=== PATIENT | female | born 1990 | race Caucasian/White ===

== ENCOUNTER 2020-02-06 17:19 | Emergency (ER) | payer OTHER, SELFPAY ==
--- NOTE | 2020-02-06 17:31 | ECG_ITS ---
Test Reason : TACHY Blood Pressure : / mmHG Vent. Rate : 136 BPM Atrial Rate : 136 BPM P-R Int : 116 ms QRS Dur : 086 ms QT Int : 288 ms P-R-T Axes : 045 051 078 degrees QTc Int : 433 ms Sinus tachycardia Possible Left atrial enlargement Nonspecific ST abnormality rsr in v2 Abnormal ECG No previous ECGs available Referred By: Marguerite Wilder Electronically Signed By:KARLA SAMSON MD
--- NOTE | 2020-02-06 17:31 | XR_ITS ---
EXAMINATION: XR CHEST CLINICAL INFORMATION: Tachycardia COMPARISON: None TECHNIQUE: Frontal view of the chest was obtained. FINDINGS: Marked biconvex thoracolumbar scoliosis is present. The exam is otherwise normal. The heart and pulmonary vessels appear normal. No infiltrates, effusions or lung masses are seen. No pneumothorax. XR/XR chest 1V IMPRESSION: No acute intrathoracic disease.
[2020-02-06 17:32] VITALS: PULSE 134; RESP 16; TEMP 36.8; O2SAT 97; BMI 26.4
--- NOTE | 2020-02-06 17:41 | ED_ITS ---
HPI - Arrhythmia/Palpitations General Chief Complaint: Dizziness Stated Complaint: PALPITATIONS,HBP Time Seen by Provider: 02/06/20 17:31 Source: patient Mode of arrival: ambulatory Limitations: no limitations History of Present Illness HPI narrative: 29 yo female presents with sudden onset of dizziness with rapid h eartbeat and is 2 months . At the time of feeling dizzy she took her blood pressure was 111/73, she takes her blood pressure several times a day because she is on nifedipine. She was given nifedipine approximately 2 months ago for preeclampsia symptoms. Her dose was increased from 60-90mg 2 days ago. Prior to this , she has not had any complications with blood pressure or arrhythmia. She does not describe any chest pain or pressure, shortness of breath, abdominal pain, abdominal distention, fevers, chills abnormal bleeding, dysuria, hematuria, and edema. MD complaint: rapid heart beat, heart racing and irregular heart beat Onset (ago): hour(s) ( 1 hour prior to arrival) Duration: constant Severity: moderate Context: occurred during rest Associated symptoms: denies other symptoms Related Data Previous Rx's Medication Instructions Recorded labetalol 100 mg PO BID #14 tab 02/06/20 Allergies Allergy/AdvReac Type Severity Reaction Status Date / Time No Known Allergies Allergy Verified 02/06/20 17:40 [No Known Allergies*] Review of Systems Review of Systems: Constitutional: No Weight loss, No Fever, No Chills, No Night Sweats, No Fatigue, No Malaise ENT/Mouth: No Hearing loss, No Ear Pain, No Nasal Congestion, No Sinus Pain, No Hoarseness, No sore throat, No Rhinorrhea, No Swallowing Difficulty Eyes: No Eye Pain, No Swelling, No Redness, No Foreign Body, No Discharge, No Vision Changes Cardiovascular: positive palpitations, No Chest Pain, No SOB, No Dyspnea on Exertion, No Orthopnea, No Edema Respiratory: No Cough, No Sputum, No Wheezing, No Smoke Exposure, No Dyspnea Gastrointestinal: No Nausea, No Vomiting, No Diarrhea, No Constipation, No abdominal Pain, No Hematochezia, No Melena Genitourinary: no irregular bleeding, No Dysuria, No Urinary Frequency, No Hematuria, No Urinary Incontinence, No Urgency, No Flank Pain, No Urinary Flow Changes, No Hesitancy Musculoskeletal: No joint pain, No Myalgias, No Joint Swelling Skin: No Skin Lesions, No rash Neuro: Positive dizziness, No Weakness, No Numbness, No Paresthesias, No Loss of Consciousness, No Headache Psych: No Anxiety/Panic, No Depression, No SI/HI/AH/VH, No Social Issues Heme/Lymph: No Bruising, No Bleeding,No Lymphadenopathy Endocrine: No Polyuria, No Polydipsia, No Temperature Intolerance PMF Past Medical History Attestation statement: The following information was validated with the patient. Medical History HTN (hypertension) : 2 Para: 2 Total number of abortions (spontaneous and elective): 0 Hx Last Menstrual Period: 2 months Social History Social History Alcohol intake: never Smoking Status: Never smoker Use of substances other than those prescribed or required for medical reasons: No Advance Directives: No Advance Directives Information Provided: Yes Physical Exam Vital Signs: Vital Signs: Vital Signs Temp Pulse Resp BP Pulse Ox 02/06/20 20:00 97.7 F 109 H 20 122/79 98 02/06/20 18:51 113 H 20 125/76 98 02/06/20 17:32 98.3 F 134 H 16 97 Body Mass Index 26.4 Appearance: Alert. Oriented X3. No acute distress. Head: Normal external exam. Normocephalic. Atraumatic. No Carr signs noted. No raccoon eyes noted Eyes: PERRLA. EOMI. Conjunctiva and sclera normal. Eyelids normal. ENT: TM's Normal. Pharynx normal. Uvula midline. Moist mucous membranes. No trismus noted. No drooling noted. No muffled voice noted. Neck: Normal inspection. Neck supple. No adenopathy. Thyroid Normal. No meningeal signs. No neck mass noted. CVS: Normal heart rate and rhythm. Heart sound normal. No murmurs noted. Pulses equal to all extremities. Respiratory: No respiratory distress. Painless inspiration. Breath sounds normal. No wheezes/rales/rhonchi noted. Chest nontender. No accessory muscle usage noted or decreased air movement noted. Abdomen: Soft and nontender. Bowel sounds normal in all 4 quadrants. No distention noted. No organomegaly noted. No visible injury noted. Back: No CVA tenderness. Full range of motion noted. Skin: Skin warm and dry. Normal skin color. Normal skin turgor. No rashes/lesions/lacerations noted. Extremities: No lower extremity edema. Extremities exhibit normal range of motion. Extremities nontender. Neuro: cranial nerves 2-12 intact, no focal neural deficits, strength 5/5 to all extremities, No motor deficit. No sensory deficit. Reflexes normal. Course Course Course Narrative: 29-year-old female 2 months presents with palpitations. Plan of care to rule out ACS, PE, infection, dehydration And HELLP syndrome. Reevaluation(s) Reevaluation #1: Ice bucket Valsalva maneuver, heart rate in the 120s Time: 17:58 Reevaluation #2: patient's heart rate in the low 100s, states to feel better than arrival, blood pressure 117/75, no acute distress. Time: 19:06 Reevaluation #3: heart rate is 108, blood pressure is 123/77, patient is resting comfortably. Plan of care is to discharge home with patient to follow- up with OBGYN and or whomever prescribed her nifedipine. Medications we changed to labetalol which she will start tomorrow. Patient does verbalize understanding of and agrees to plan of care discharge home. 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 Time: 20:25 MDM - Arrhythmia/Palpitations Differential Diagnosis Differential diagnosis: Likely palpitations, sinus tachycardia and artial f ibrillation Medical Records Attestation: I reviewed the patient's medical records. Lab Data Attestation: I reviewed the patient's lab results. Result diagrams: 02/06/20 17:50 02/06/20 17:50 Labs: Lab Results 02/06/20 02/06/20 02/06/20 Range/Units 17:50 17:50 17:50 WBC 11.6 H (4.8-10.8) X10*3/uL RBC 4.34 (4.20-5.50) X10*6/uL Hgb 12.9 (12.0-16.0) g/dl Hct 39.3 (37-47) % MCV 90.6 (80-98) fL MCH 29.7 (27.0-33.0) pg MCHC 32.8 (31.0-35.0) g/dl RDW 13.6 (11.0-16.0) % Plt Count 271 (160-400) X10*3/uL MPV 9.4 (9.4-12.3) fL Immature Gran % (Auto) 0.3 (0.0-0.4) % Neut % (Auto) 56.4 (45-73) % Lymph % (Auto) 36.4 (20-40) % [place] % (Auto) 4.5 (2-11) % Eos % (Auto) 2.1 (0-4) % Baso % (Auto) 0.3 (0-2) % Lymph # (Auto) 4.2 (1.2-4.9) X10*3/uL [place] # (Auto) 0.5 (0.1-1.2) X10*3/uL Eos # (Auto) 0.3 (0.0-0.4) X10*3/uL Baso # (Auto) 0.0 (0.0-0.2) X10*3/uL Abs Immat Gran (auto) 0.03 (0.00-0.03) X10*3/uL Absolute Neuts (auto) 6.6 (2.0-8.3) X10*3/uL Absolute Nucleated RBC 0.000 (0.0-0.012) X10*3/uL Nucleated RBC % (auto) 0.0 (0.0-0.2) /100WBC D-Dimer NG/ML Sodium 138 (135-145) mmol/L Potassium 3.4 (3.3-5.1) mmol/l Chloride 102 (96-108) mmol/L Carbon Dioxide 22 (22-29) mmol/L Anion Gap 17 (12-20) BUN 15 (9-16) mg/dL Creatinine 0.77 (0.5-1.4) mg/dL Estim Creat Clear Calc 117.8 Estimated GFR > 60 Random Glucose 130 H (60-115) mg/dL Lactic Acid 1.9 (0.5-2.0) mmol/L Calcium 9.4 (8.4-10.2) mg/dL Magnesium 1.8 (1.6-2.6) mg/dL Total Bilirubin 0.4 (0.0-1.0) mg/dL Direct Bilirubin 0.2 (0.0-0.5) mg/dL AST 29 (5-31) U/L ALT 31 (0-31) U/L Alkaline Phosphatase 105 (39-117) U/L Troponin I High Sens (<3.5-17.0) ng/L B-Natriuretic Peptide (<100) pg/mL Total Protein 8.3 H (6.5-8.0) g/dL Albumin 4.9 (3.5-5.0) g/dL Lipase 35 (8-78) U/L TSH (0.32-4.0) mIU/mL Urine Color Urine Appearance Urine pH (5.0-8.0) Ur Specific [place] (1.005-1.025) Urine Protein (NEG-TRACE) MG/DL Urine Glucose (UA) (NEG) MG/DL Urine Ketones (NEG) MG/DL Urine Blood (NEG) Urine Nitrite (NEG) Ur Leukocyte Esterase (NEG) Urine RBC (0) /HPF Urine WBC (0-4) /HPF Ur Squamous Epith Cells /LPF Urine Bacteria /LPF Urine Mucus /LPF 02/06/20 02/06/20 02/06/20 Range/Units 17:50 17:50 17:51 WBC (4.8-10.8) X10*3/uL RBC (4.20-5.50) X10*6/uL Hgb (12.0-16.0) g/dl Hct (37-47) % MCV (80-98) fL MCH (27.0-33.0) pg MCHC (31.0-35.0) g/dl RDW (11.0-16.0) % Plt Count (160-400) X10*3/uL MPV (9.4-12.3) fL Immature Gran % (Auto) (0.0-0.4) % Neut % (Auto) (45-73) % Lymph % (Auto) (20-40) % [place] % (Auto) (2-11) % Eos % (Auto) (0-4) % Baso % (Auto) (0-2) % Lymph # (Auto) (1.2-4.9) X10*3/uL [place] # (Auto) (0.1-1.2) X10*3/uL Eos # (Auto) (0.0-0.4) X10*3/uL Baso # (Auto) (0.0-0.2) X10*3/uL Abs Immat Gran (auto) (0.00-0.03) X10*3/uL Absolute Neuts (auto) (2.0-8.3) X10*3/uL Absolute Nucleated RBC (0.0-0.012) X10*3/uL Nucleated RBC % (auto) (0.0-0.2) /100WBC D-Dimer < 200 NG/ML Sodium (135-145) mmol/L Potassium (3.3-5.1) mmol/l Chloride (96-108) mmol/L Carbon Dioxide (22-29) mmol/L Anion Gap (12-20) BUN (9-16) mg/dL Creatinine (0.5-1.4) mg/dL Estim Creat Clear Calc Estimated GFR Random Glucose (60-115) mg/dL Lactic Acid (0.5-2.0) mmol/L Calcium (8.4-10.2) mg/dL Magnesium (1.6-2.6) mg/dL Total Bilirubin (0.0-1.0) mg/dL Direct Bilirubin (0.0-0.5) mg/dL AST (5-31) U/L ALT (0-31) U/L Alkaline Phosphatase (39-117) U/L Troponin I High Sens < 3.5 (<3.5-17.0) ng/L B-Natriuretic Peptide 14 (<100) pg/mL Total Protein (6.5-8.0) g/dL Albumin (3.5-5.0) g/dL Lipase (8-78) U/L TSH 0.83 (0.32-4.0) mIU/mL Urine Color Urine Appearance Urine pH (5.0-8.0) Ur Specific [place] (1.005-1.025) Urine Protein (NEG-TRACE) MG/DL Urine Glucose (UA) (NEG) MG/DL Urine Ketones (NEG) MG/DL Urine Blood (NEG) Urine Nitrite (NEG) Ur Leukocyte Esterase (NEG) Urine RBC (0) /HPF Urine WBC (0-4) /HPF Ur Squamous Epith Cells /LPF Urine Bacteria /LPF Urine Mucus /LPF 02/06/20 Range/Units 19:35 WBC (4.8-10.8) X10*3/uL RBC (4.20-5.50) X10*6/uL Hgb (12.0-16.0) g/dl Hct (37-47) % MCV (80-98) fL MCH (27.0-33.0) pg MCHC (31.0-35.0) g/dl RDW (11.0-16.0) % Plt Count (160-400) X10*3/uL MPV (9.4-12.3) fL Immature Gran % (Auto) (0.0-0.4) % Neut % (Auto) (45-73) % Lymph % (Auto) (20-40) % [place] % (Auto) (2-11) % Eos % (Auto) (0-4) % Baso % (Auto) (0-2) % Lymph # (Auto) (1.2-4.9) X10*3/uL [place] # (Auto) (0.1-1.2) X10*3/uL Eos # (Auto) (0.0-0.4) X10*3/uL Baso # (Auto) (0.0-0.2) X10*3/uL Abs Immat Gran (auto) (0.00-0.03) X10*3/uL Absolute Neuts (auto) (2.0-8.3) X10*3/uL Absolute Nucleated RBC (0.0-0.012) X10*3/uL Nucleated RBC % (auto) (0.0-0.2) /100WBC D-Dimer NG/ML Sodium (135-145) mmol/L Potassium (3.3-5.1) mmol/l Chloride (96-108) mmol/L Carbon Dioxide (22-29) mmol/L Anion Gap (12-20) BUN (9-16) mg/dL Creatinine (0.5-1.4) mg/dL Estim Creat Clear Calc Estimated GFR Random Glucose (60-115) mg/dL Lactic Acid (0.5-2.0) mmol/L Calcium (8.4-10.2) mg/dL Magnesium (1.6-2.6) mg/dL Total Bilirubin (0.0-1.0) mg/dL Direct Bilirubin (0.0-0.5) mg/dL AST (5-31) U/L ALT (0-31) U/L Alkaline Phosphatase (39-117) U/L Troponin I High Sens (<3.5-17.0) ng/L B-Natriuretic Peptide (<100) pg/mL Total Protein (6.5-8.0) g/dL Albumin (3.5-5.0) g/dL Lipase (8-78) U/L TSH (0.32-4.0) mIU/mL Urine Color YELLOW Urine Appearance CLEAR Urine pH 6.0 (5.0-8.0) Ur Specific [place] 1.020 (1.005-1.025) Urine Protein NEG (NEG-TRACE) MG/DL Urine Glucose (UA) NEG (NEG) MG/DL Urine Ketones 5 (NEG) MG/DL Urine Blood NEG (NEG) Urine Nitrite NEG (NEG) Ur Leukocyte Esterase 1+ H (NEG) Urine RBC 0-2 (0) /HPF Urine WBC 5-9 H (0-4) /HPF Ur Squamous Epith Cells TRACE /LPF Urine Bacteria 1+ /LPF Urine Mucus TRACE /LPF ECG Data Attestation: I personally reviewed and interpreted this ECG as follows: ECG interpretation date: 02/06/20 ECG interpretation time: 17:59 Interpretation: Vent. rate 136 BPM MD interval 116 ms QRS duration 86 ms QT/QTc 288/433 ms P-R-T axes 45 51 78 Sinus tachycardia Possible Left atrial enlargement Nonspecific T wave abnormality Abnormal ECG No previous ECGs available Discharge Plan Discharge Clinical Impression: Tachycardia Patient Disposition: Home, Self-Care Instructions: Tachycardia (ED) Additional Instructions: you were evaluated for tachycardia. Please follow-up with your OBGYN and her PCP. Please stop taking nifedipine. We prescribed labetalol. Please start this medication tomorrow as directed. Symptoms persist, or you have any concerns please return to the emergency department immediately. Thank you for choosing this emergency department for evaluation. Please follow-up with primary care physician as needed. Return to the emergency department for any new, concerning, or worsening symptoms. Prescriptions: New labetalol 100 mg tablet 100 mg PO BID Qty: 14 RF: 0 Interventions: ED Discharge Assessment Last Done: 02/06/20 21:10 Discharge Date/Time: 02/06/20 21:10
[2020-02-06] MEDS: 0.9 % Sodium Chloride 1,000 ML 999 ML IVCONT ×2 (17:54→19:10)
[2020-02-06 17:57] LABS: MANUAL DIFF FLAG NO
[2020-02-06 17:58] LABS: Basophils Percent Auto 0.3 % (0-2); Eosinophils Absolute Auto 0.3 X10*3/uL (0.0-0.4); Eosinophils Percent Auto 2.1 % (0-4); Hematocrit 39.3 % (37-47); Hemoglobin 12.9 g/dl (12.0-16.0); Imm Gran Abs Auto 0.03 X10*3/uL (0.00-0.03); Imm Gran Pct Auto 0.3 % (0.0-0.4); Lymphocytes Absolute Auto 4.2 X10*3/uL (1.2-4.9); Lymphocytes Percent Auto 36.4 % (20-40); Mean Corpuscular HGB Conc 32.8 g/dl (31.0-35.0); Mean Corpuscular Hemoglobin 29.7 pg (27.0-33.0); Mean Corpuscular Volume 90.6 fL (80-98); Mean Platelet Volume 9.4 fL (9.4-12.3); Monocytes Absolute Auto 0.5 X10*3/uL (0.1-1.2); Monocytes Percent Auto 4.5 % (2-11); Neutrophils Absolute Auto 6.6 X10*3/uL (2.0-8.3); Neutrophils Percent Auto 56.4 % (45-73); Platelet Count 271 X10*3/uL (160-400); Red Blood Count 4.34 X10*6/uL (4.20-5.50); Red Cell Distribution Width 13.6 % (11.0-16.0); White Blood Count 11.6 X10*3/uL (4.8-10.8)
[2020-02-06 18:22] LABS: Lactic Acid 1.9 mmol/L (0.5-2.0)
[2020-02-06 18:27] LABS: Alanine Aminotransferase 31 U/L (0-31); Albumin Level 4.9 g/dL (3.5-5.0); Alkaline Phosphatase 105 U/L (39-117); Anion Gap 17 (12-20); Aspartate Amino Transferase 29 U/L (5-31); Bilirubin Direct 0.2 mg/dL (0.0-0.5); Bilirubin Total 0.4 mg/dL (0.0-1.0); Blood Urea Nitrogen 15 mg/dL (9-16); Calcium 9.4 mg/dL (8.4-10.2); Carbon Dioxide 22 mmol/L (22-29); Chloride 102 mmol/L (96-108); Creatinine Clr Calc Pharmacy 117.8; Estimated Glomerular Filt Rate > 60; Glucose Random 130 mg/dL (60-115); Lipase 35 U/L (8-78); Magnesium 1.8 mg/dL (1.6-2.6); Potassium 3.4 mmol/l (3.3-5.1); Sodium 138 mmol/L (135-145); Total Protein 8.3 g/dL (6.5-8.0)
[2020-02-06 18:30] LABS: B Type Natriuretic Peptide 14 pg/mL (<100); Troponin-I High Sensitivity < 3.5 ng/L (<3.5-17.0)
[2020-02-06 18:39] LABS: D Dimer < 200 NG/ML
[2020-02-06 18:46] LABS: Thyroid Stimulating Hormone 0.83 mIU/mL (0.32-4.0)
[2020-02-06 18:51] VITALS: BP 125/76; PULSE 113; RESP 20; O2SAT 98
[2020-02-06 20:00] VITALS: BP 122/79; PULSE 109; RESP 20; TEMP 36.5; O2SAT 98
[2020-02-06 20:16] LABS: Glucose Urine UA NEG (NEG); Leukocyte Esterase Urine 1+ (NEG); Nitrite Urine NEG (NEG); Urine Blood NEG (NEG); Urine Ketones 5 MG/DL (NEG); Urine Protein NEG (NEG-TRACE)
[2020-02-06 20:17] LABS: Appearance Urine CLEAR; Color Urine YELLOW
[2020-02-06 20:46] LABS: Bacteria Urine 1+ /LPF; RBC Urine 0-2 /HPF (0); Squamous Epithelial Cell Urine TRACE /LPF
[2020-02-06 20:47] LABS: Mucus Urine TRACE /LPF
== END 2020-02-06 21:10 | disposition home or self-care (01) ==
PROVIDERS: Nurse Practitioner Family; Emergency Provider Emergency Medicine
DX: R00.2 Palpitations (principal); R42 Dizziness and giddiness; Z79.899 Other long term (current) drug therapy
CPT/HCPCS: 36415; 71045; 80048; 80076; 81001; 81003; 83605; 83690; 83735; 83880; 84443; 84484; 85025; 85379; 87040; 93005; 96360; 96361; 99284

== ENCOUNTER 2020-02-29 19:32 | Emergency (ER) | payer OTHER, SELFPAY ==
--- NOTE | 2020-02-29 | ECG_ITS ---
Test Reason : TACHYCARDIA Blood Pressure : / mmHG Vent. Rate : 126 BPM Atrial Rate : 126 BPM P-R Int : 152 ms QRS Dur : 086 ms QT Int : 266 ms P-R-T Axes : 045 035 086 degrees QTc Int : 385 ms Sinus tachycardia Nonspecific T wave abnormality Abnormal ECG No significant changes seen Referred By: Joseph Lazcano Electronically Signed By:KARLA SAMSON MD
[2020-02-29 19:48] VITALS: BP 127/65; BP 128/71; PULSE 122; PULSE 135; RESP 16; TEMP 36.8; O2SAT 99; BMI 56.2
--- NOTE | 2020-02-29 19:59 | PC.NURSE ---
EKG and labs obtained.
--- NOTE | 2020-02-29 20:04 | ECG_ITS ---
Test Reason : SVT Blood Pressure : / mmHG Vent. Rate : 158 BPM Atrial Rate : 158 BPM P-R Int : 104 ms QRS Dur : 078 ms QT Int : 326 ms P-R-T Axes : 017 017 055 degrees QTc Int : 528 ms Sinus tachycardia with short CT Nonspecific ST and T wave abnormality Abnormal ECG When compared with ECG of 06-FEB-2020 17:37, Heart rate has increased ST depression in Anterolateral leads is new Referred By: Joseph Lazcano Electronically Signed By:KARLA SAMSON MD
[2020-02-29] MEDS: 0.9 % Sodium Chloride 1,000 ML 999 ML IVCONT (20:32)
--- NOTE | 2020-02-29 20:36 | PC.NURSE ---
pt speaking on the phone. labs to lab. NS up and running w/o site intact.
[2020-02-29 20:42] LABS: Basophils Percent Auto 0.1 % (0-2); Eosinophils Absolute Auto 0.2 X10*3/uL (0.0-0.4); Eosinophils Percent Auto 1.6 % (0-4); Hematocrit 35.8 % (37-47); Hemoglobin 11.7 g/dl (12.0-16.0); Imm Gran Abs Auto 0.01 X10*3/uL (0.00-0.03); Imm Gran Pct Auto 0.1 % (0.0-0.4); Lymphocytes Absolute Auto 3.6 X10*3/uL (1.2-4.9); Lymphocytes Percent Auto 36.5 % (20-40); MANUAL DIFF FLAG NO; Mean Corpuscular HGB Conc 32.7 g/dl (31.0-35.0); Mean Corpuscular Hemoglobin 30.8 pg (27.0-33.0); Mean Corpuscular Volume 94.2 fL (80-98); Mean Platelet Volume 9.9 fL (9.4-12.3); Monocytes Absolute Auto 0.5 X10*3/uL (0.1-1.2); Monocytes Percent Auto 5.2 % (2-11); Neutrophils Absolute Auto 5.5 X10*3/uL (2.0-8.3); Neutrophils Percent Auto 56.5 % (45-73); Platelet Count 257 X10*3/uL (160-400); Red Cell Distribution Width 14.2 % (11.0-16.0); White Blood Count 9.8 X10*3/uL (4.8-10.8)
--- NOTE | 2020-02-29 21:16 | ED.ARRPALP ---
HPI - Arrhythmia/Palpitations General Chief Complaint: Arrhythmia/Palpitations Stated Complaint: un Time Seen by Provider: 02/29/20 20:21 Source: patient Mode of arrival: ambulatory Limitations: language barrier History of Present Illness HPI narrative: patient 89 with history of preeclampsia was on nifedipine which was changed to labetalol on 02/05 for tachycardia for 1 week today patient had palpitation episode heart rate went to 165 and patient was feeling weak and dizzy. Patient denies any chest pain no shortness of breath no fever on arrival heart rate is in the 120s complaint: rapid heart beat Arrhythmia history: SVT Related Data Previous Rx's Medication Instructions Recorded labetalol 100 mg PO BID #14 tab 02/06/20 Allergies Allergy/AdvReac Type Severity Reaction Status Date / Time No Known Allergies Allergy Verified 02/06/20 17:40 [No Known Allergies*] Review of Systems Review of Systems: REVIEW OF SYSTEMS: Pertinent positives and negatives are stated above in the history. GEN: no fevers, chills, fatigue HEENT: no nasal congestion, sore throat, ear pain NEURO: no headache, dizziness, focal weakness PULM: no cough, shortness of breath CV: no chest pain, LE edema ABD: no abdominal pain, nausea, vomiting, diarrhea : no dysuria, urgency, frequency SKIN: no rash ROS otherwise negative x [facility] Past Medical History Medical History HTN (hypertension) Social History Social History Alcohol intake: never Smoking Status: Never smoker Advance Directives: No Advance Directives Information Provided: No Physical Exam Vital Signs: Vital Signs: Last Vital Signs Temp 98.2 F 02/29/20 19:48 Pulse 91 02/29/20 22:52 Resp 18 02/29/20 22:52 BP 128/85 02/29/20 22:52 Pulse Ox 98 02/29/20 22:52 Body Mass Index 56.2 Appearance: Alert. Oriented X3. No acute distress. Eyes: Pupils equal, round and reactive to light. ENT: Pharynx normal. Neck: Normal inspection. Neck supple. CVS: sinus tachycardia no murmur. Pulses normal. Respiratory: No respiratory distress. Breath sounds normal. Abdomen: Soft and nontender. Skin: Skin warm and dry. Normal skin color. Normal skin turgor. Extremities: No lower extremity edema. Good range of movement Neuro: Oriented X 3. No motor deficit. No sensory deficit. Course Course Course Narrative: 10:33pm lunchroom monitor showing SVT with heart rate 165 will give her 6 mg of Adenocard. Repeat EKG shows S sinus tachycardia with heart rate of 158 with poor response to Adenocard will give her Lopressor IV. Patient responded to Lopressor IV heart rate is 97 now sinus rhythm patient feels better will discharge her home to continue Lopressor 25 mg twice daily MDM - Arrhythmia/Palpitations MDM Narrative Medical decision making narrative: patient with sinus tachycardia was taking labetalol which was stopped blood pressure stable will start her on Lopressor 25 mg twice daily Differential Diagnosis Differential diagnosis: Likely palpitations, anxiety, sinus tachycardia and supraventricular tachycardia Medical Records Attestation: I reviewed the patient's medical records. Lab Data Attestation: I reviewed the patient's lab results. Result diagrams: 02/29/20 20:35 02/29/20 20:35 Labs: Lab Results 02/29/20 02/29/20 02/29/20 Range/Units 20:35 20:35 21:10 WBC 9.8 (4.8-10.8) X10*3/uL RBC 3.80 L (4.20-5.50) X10*6/uL Hgb 11.7 L (12.0-16.0) g/dl Hct 35.8 L (37-47) % MCV 94.2 (80-98) fL MCH 30.8 (27.0-33.0) pg MCHC 32.7 (31.0-35.0) g/dl RDW 14.2 (11.0-16.0) % Plt Count 257 (160-400) X10*3/uL MPV 9.9 (9.4-12.3) fL Immature Gran % (Auto) 0.1 (0.0-0.4) % Neut % (Auto) 56.5 (45-73) % Lymph % (Auto) 36.5 (20-40) % [place] % (Auto) 5.2 (2-11) % Eos % (Auto) 1.6 (0-4) % Baso % (Auto) 0.1 (0-2) % Lymph # (Auto) 3.6 (1.2-4.9) X10*3/uL [place] # (Auto) 0.5 (0.1-1.2) X10*3/uL Eos # (Auto) 0.2 (0.0-0.4) X10*3/uL Baso # (Auto) 0.0 (0.0-0.2) X10*3/uL Abs Immat Gran (auto) 0.01 (0.00-0.03) X10*3/uL Absolute Neuts (auto) 5.5 (2.0-8.3) X10*3/uL Absolute Nucleated RBC 0.000 (0.0-0.012) X10*3/uL Nucleated RBC % (auto) 0.0 (0.0-0.2) /100WBC Sodium 140 (135-145) mmol/L Potassium 3.1 L (3.3-5.1) mmol/l Chloride 105 (96-108) mmol/L Carbon Dioxide 23 (22-29) mmol/L Anion Gap 15 (12-20) BUN 14 (9-16) mg/dL Creatinine 0.70 (0.5-1.4) mg/dL Estim Creat Clear Calc 195.8 Estimated GFR > 60 Random Glucose 136 H (60-115) mg/dL Calcium 8.7 D (8.4-10.2) mg/dL TSH 1.03 (0.32-4.0) uIU/mL Urine Color STRAW Urine Appearance HAZY Urine pH 6.5 (5.0-8.0) Ur Specific [place] 1.010 (1.005-1.025) Urine Protein NEG (NEG-TRACE) MG/DL Urine Glucose (UA) NEG (NEG) MG/DL Urine Ketones NEG (NEG) MG/DL Urine Blood 3+ H (NEG) Urine Nitrite NEG (NEG) Ur Leukocyte Esterase 1+ H (NEG) Urine RBC 0-2 (0) /HPF Urine WBC 10-14 H (0-4) /HPF Ur Squamous Epith Cells 3+ /LPF Urine Bacteria 1+ /LPF Urine Mucus 1+ /LPF ECG Data Attestation: I personally reviewed and interpreted this ECG as follows: Prior ECG tracings: available for review Interpretation: sinus tachycardia with heart rate of 126. nonspecific ST T wave changes normal axis normal intervals impression sinus tachycardia. Discharge Plan Discharge Prescriptions: No Action labetalol 100 mg tablet 100 mg PO BID Qty: 14 RF: 0
[2020-02-29 21:25] LABS: Glucose Urine UA NEG (NEG); Leukocyte Esterase Urine 1+ (NEG); Nitrite Urine NEG (NEG); PH 6.5 (5.0-8.0); Urine Blood 3+ (NEG); Urine Ketones NEG (NEG); Urine Protein NEG (NEG-TRACE)
[2020-02-29 21:27] LABS: Anion Gap 15 (12-20); Blood Urea Nitrogen 14 mg/dL (9-16); Calcium 8.7 mg/dL (8.4-10.2); Carbon Dioxide 23 mmol/L (22-29); Chloride 105 mmol/L (96-108); Creatinine Clr Calc Pharmacy 195.8; Estimated Glomerular Filt Rate > 60; Glucose Random 136 mg/dL (60-115); Potassium 3.1 mmol/l (3.3-5.1); Sodium 140 mmol/L (135-145)
[2020-02-29 21:29] LABS: Appearance Urine HAZY; Color Urine STRAW
[2020-02-29 21:44] LABS: Bacteria Urine 1+ /LPF; RBC Urine 0-2 /HPF (0); Squamous Epithelial Cell Urine 3+ /LPF
[2020-02-29 21:45] LABS: Mucus Urine 1+ /LPF
[2020-02-29 21:52] LABS: Thyroid Stimulating Hormone 1.03 uIU/mL (0.32-4.0)
[2020-02-29 22:18] VITALS: BP 123/80; PULSE 103
[2020-02-29] MEDS: Potassium Chloride ER 20 MEQ TAB.ER.PRT PO (22:18)
[2020-02-29] MEDS: Metoprolol Tartrate 25 MG TABLET PO (22:18)
[2020-02-29] MEDS: Nitrofurantoin Monohyd/M-Cryst 100 MG CAPSULE PO (22:21)
[2020-02-29 22:44] VITALS: BP 140/85; PULSE 125
[2020-02-29] MEDS: Metoprolol Tartrate 5 MG/5 ML VIAL IVPUSH (22:44)
--- NOTE | 2020-02-29 22:50 | PC.NURSE ---
aprox 2230 pt found to be in svt 160s/ vagle maneuver ineffective. md to bedside. 6mg adenosine ivp brought hr to 130's for a short time but back to 160s quickly. pt was alert, coherent, skin pink warm, slightly diaphoretic. st at 95 after 5mg metoprolol ivp. md aware pt feels fine
[2020-02-29 22:52] VITALS: BP 128/85; PULSE 91; RESP 18; O2SAT 98
== END 2020-03-01 00:13 | disposition home or self-care (01) ==
PROVIDERS: Emergency Provider Internal Medicine
DX: R00.2 Palpitations (principal)
CPT/HCPCS: 36415; 80048; 81001; 84443; 85025; 87086; 93005; 96361; 96374; 96375; 99283; 99284; J0153

== ENCOUNTER 2025-03-03 14:18 | Outpatient (AMB) | payer OTHER, SELFPAY ==
--- NOTE | 2025-03-03 14:25 | A.OFFVIS_ITS ---
Vital Signs 03/03/25 14:33 Height 5 ft 8 in Weight 184 lb BMI 28.0 BP 156/88 H Blood Pressure Location Lt brachial Position Sitting Intake Visit Reasons: vaginal odor and pelvic pain Intake Note: vaginal odor and pelvic pain for about 3 days Registered Nurse Cardiac Required: Yes Registered Nurse Cardiac Services: Registered Nurse Cardiac Offered & Declined Information Interpreted: non-clinical & clinical Cupola Melter: Cupola Melter Present (Juanita) Accompanied by: Self / Same As Patient Allergies No Known Allergies (No Known Allergies*) Allergy (Verified 03/03/25 14:36) Medication List - Last Reconciled 03/03/25 by Mi Orellana CNM No Known Home Meds Is last menstrual period known: Yes (6 month ago) Do you need a note to return to daycare/school/sports/work: No HPI HPI vaginal odor and pelvic pain: Details: Patient is here as a brand new patient the visit says for vaginal odor and pelvic pain. 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 She wants it out to talk about getting some other method she is not really sure what other method she has 2 young children the youngest was 5. She had difficult pregnancies with severe preeclampsia.. She does not want to another she was hoping to take out this IUD and also then she wants to talk about another method. She does not want anymore children and she is very clear about that but she is afraid of surgery. She is sexually active she also voiced concern about having gained weight over time she used to be in the 150s and now she is in the 180s and she does not like that. She sees a primary care provider somewhere in [place] and she says the doctor took her off the blood pressure medicine she was on because her blood pressure was good it is elevated today. She thinks it is because she is nervous about an exam. [facility] Medical History (Updated 03/03/25 @ 15:26 by Mi Orellana CNM) HTN (hypertension) Social History Household Members: Spouse and Children Housing: Apartment Alcohol intake: never Current occupational status: employed Female Reproductive History Menstrual Age of Menarche: 14 control method: copper IUCD Total pregnancies: 2 Number of Living Children: 2 Physical Exam Vital Signs: Last Vital Signs BP 156/88 H 03/03/25 14:33 BMI result Body Mass Index 28.0 Other: Normal external speculum exam normal vaginal discharge and mucus normal mucosa cervix multiparous pink smooth healthy appearing with Mirena IUD visible normal non malodorous discharge cervix long close thick mobile nontender uterus midposition mobile nontender adnexa nontender nonenlarged fair tone with Kegel. External Female Exam: normal external appearance Speculum Exam - Vagina: normal appearance of the vagina and normal vaginal discharge Speculum Exam - Cervix: normal appearance of the cervix Bimanual exam- vagina & uterus: normal bimanual exam, uterine size normal, cons istency normal, uterine mobility normal, uterine shape normal and non-tender Bimanual Exam- Adnexa, other: normal adnexae, no masses and No adnexal tenderness Assessment & Plan Assessment & Plan (1) Encounter for screening examination for sexually transmitted disease: Code(s): Z11.3 - Encounter for screening for infections with a predominantly sexual mode of transmission Category: Medical (2) IUD (intrauterine device) in place: Comment: Patient thought she had a ParaGard IUD strings indicated is a Mirena IUD as does 3 years of amenorrhea. Patient considering change. Code(s): Z97.5 - Presence of (intrauterine) contraceptive device Category: Medical (3) HTN (hypertension): Comment: With history of severe preeclampsia in , states her doctor discontinued her meds... Code(s): I10 - Essential (primary) hypertension Category: Medical Plan Patient is here as a brand new patient the visit says for vaginal odor and pelvic pain. 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 She wants it out to talk about getting some other method she is not really sure what other method she has 2 young children the youngest was 5. She had difficult pregnancies with severe preeclampsia.. She does not want to another she was hoping to take out this IUD and also then she wants to talk about another method. She does not want anymore children and she is very clear about that but she is afraid of surgery. She is sexually active she also voiced concern about having gained weight over time she used to be in the 150s and now she is in the 180s and she does not like that. She sees a primary care provider somewhere in [place] and she says the doctor took her off the blood pressure medicine she was on because her blood pressure was good it is elevated today. She thinks it is because she is nervous about an exam. Discussed that she most likely has the Mirena IUD because that is what the strings appear to be and with her amenorrhea for 3 years it would not be the ParaGard I discussed other options of control that she might want to consider the future but a better plan is to know exactly what she is going to do before she takes out the IUD she has as it is clearly serving her cultures were done today for gonorrhea chlamydia trichomoniasis as well as well as bacterial vaginosis and yeast. Her discharge appears very healthy and normal today and there is no malodor evident. However we will await the test results to see if there is anything to treat. Teaching done about the difference between the ParaGard IUD and the Mirena IUD in terms of menstrual changes etc. discussed that she would not be a candidate for control pills because of her high blood pressure, also discussed that the other 2 non combination OC methods would not be beneficial for her because of her concern about weight gain (i.e. Nexplanon and Depo-Provera). We will see her for full annual exam with Pap smear and request that the records be sent before the visit. Medications: Discontinued metoprolol tartrate Discontinued Reason: Order 25 mg PO BID 60 tabs 0RF Coding Level of Care Code New Pt Level 3 (35934) Diagnoses Encounter for screening examination for sexually transmitted disease Z11.3 IUD (intrauterine device) in place Z97.5 HTN (hypertension) I10
[2025-03-03 14:33] VITALS: BP 156/88; BMI 28.0
--- OUTSIDE RECORDS SUMMARY | 2025-03-04 02:46 | XMS_ITS | Clinical Summary ---
Author Organization [employer] Address [address] [place] [address] Care Team Providers Care Officer Captain Name Role Phone Unavailable Primary Care Provider Unavailabl e Social History Tobacco Use Types Packs/Day Years Used Date Smoking Tobacco: Never Assessed Comments Unknown Sex and Gender Information Value Date Recorded Sex Assigned at Female 02/09/2022 3:45 PM EDT Legal Sex Female 3:45 PM EDT Gender Identity Not on file Sexual Orientation Not on file Plan of Treatment Health Maintenance Due Date Last Done Comments Depression Screening 1989 Disability Screening 1989 Alcohol/Substance Use Screening 2001 Tobacco Screening 2001 Family Planning (PISQ) 2004 HPV Vaccines (1 - 3-dose series) 2004 DTaP/Tdap/Td Vaccines (1 - Tdap) 2008 Hepatitis B Vaccines (1 of 3 - 19+ 3-dose series) 2008 Pap Smear 2010 Cervical Cancer Screening 2019 HPV/Cotest 2019 COVID-19 Vaccine ( - 2024-2 6 season) 2024 Influenza Vaccine (#1) 2024 Zoster Vaccines (1 of 2) 2039 RSV Patients and Pa tients Aged 60 years or older (1 - 1-dose 75+ series) 2064 HIB Vaccines Aged Out No longer eligi ble based on patient's age to complete this topic Hepatitis A Vaccines Aged Out No long er eligible based on patient's age to complete this topic IPV Vaccines Aged Out No longer eligi ble based on patient's age to complete this topic Meningococcal B Vaccine Aged Out No l onger eligible based on patient's age to complete this topic Meningococcal Vaccine Aged Out No mart vangie eligible based on patient's age to complete this topic Pneumococcal Vaccine: Pediat rics (0 to 5 Years) and At-Risk Patients (6 to 49) Years Aged Out No longer eligible b ased on patient's age to complete this topic RSV under 20 months Aged Out No longe r eligible based on patient's age to complete this topic Rotavirus Vaccines Aged Out No longer eligible based on patient's age to complete this topic
--- OUTSIDE RECORDS SUMMARY | 2025-03-04 02:46 | XMS_ITS ---
Author Name [facility] Organization Unknown Care Team Organization Name Specialty Phone Email Start Date End Da te [facility] FUAD AJ Primary Care 02/20/2022 4
== END 2025-03-03 15:43 | disposition home or self-care (01) ==
LOC: HO.HWSM 14:18
PROVIDERS: Visit Provider Advanced Practice Midwife
DX: Z11.3 Encounter for screening for infections with a predominantly sexual mode of transmission (principal); Z97.5 Presence of (intrauterine) contraceptive device; I10 Essential (primary) hypertension
CPT/HCPCS: 99203

== ENCOUNTER 2025-03-03 14:18 | Outpatient (REF) | payer OTHER, SELFPAY ==
[2025-03-04 12:10] LABS: Bacterial Vaginosis PCR POSITIVE (Negative); Candida Group PCR NOT DETECTED (Not Detect); Candida glab krusei PCR NOT DETECTED (Not Detect); Trichomonas vaginalis PCR NOT DETECTED (Not Detect)
[2025-03-04 12:40] LABS: CT PCR NOT DETECTED (Not Detect.); NG PCR NOT DETECTED (Not Detect.)
== END 2025-03-03 14:19 | disposition home or self-care (01) ==
LOC: HO.LAB 14:18
PROVIDERS: Visit Provider Advanced Practice Midwife
DX: Z20.2 Contact with and (suspected) exposure to infections with a predominantly sexual mode of transmission (principal); I10 Essential (primary) hypertension; Z97.5 Presence of (intrauterine) contraceptive device
CPT/HCPCS: 81515; 87491; 87591; 99202

== ENCOUNTER 2025-03-03 16:57 | Outpatient (REF) | payer OTHER, SELFPAY ==
--- OUTSIDE RECORDS SUMMARY | 2025-03-04 05:00 | XMS_ITS | Encounter Summary ---
Author Organization [facility] Address [address] [place] [address] Care Team Providers Care Voice Coach Name Role Phone Jelani Alicea MD Primary Care Provider + [phone] Luis Alfredo Foley MD Primary Care Provider [phone] Laney Epps MD Unavailable [phone] Encounter Details Date Type Department Care Team Description 05/17/2020 Refill Adult Medicine [facility] [address] [place] [address] Jelani Alicea MD [address] [place] [address] Social History Tobacco Use Types Packs/Day Years Used Date Smoking Tobacco: Never Smokeless Tobacco: Never Alcohol Use Standard Drinks/Week Comments No 0 (1 standard drink = 0.6 oz pur e alcohol) Sex Assigned at Date Recorded Not on file Job Start Date Occupation Industry Not on file Not on file Not on file COVID-19 Exposure Response Date Recorded In the last month, have you been in contact with someone who was confirmed or suspected to have Coronavirus / COVID-19? No / Unsure 04/25/2020 2:20 PM EST documented as of this encounter Miscellaneous Notes * Telephone Encounter - Yonatan Buckner - 05/17/2020 2:09 PM EST Pt notified. Pt also has appt f/u 05/25/2020 10:00 AM Wero Montes PA-C Adult [facility] * Telephone Encounter - Betzaida Alas M.A. - 05/17/2020 12:10 PM EST MARQUITA 1.8.21 Lab Results Component Value Date NA 138 04/22/2020 K 3.5 04/22/2020 CO2 27 04/22/2020 CL 102 04/22/2020 BUN 14 04/22/2020 CREAT 0.66 04/22/2020 GLU 86 04/22/2020 CA 10.0 04/22/2020 GFR > 60 04/22/2020 documented in this encounter Plan of Treatment Not on file documented as of this encounter Visit Diagnoses Not on filedocumented in this encounter Care Teams Voice Coach Relationship Specialty Start Date End Date Jelani Alicea MD [address] [place] [address] PCP - General Internal Medicine 08/09/17 06/28/21 Luis Alfredo Folye MD [address] [place] [address] PCP - General Internal Medicine 06/29/21 Laney Epps MD [address] [place] [address] Specialist Neurosurgery 10/26/22 documented as of this encounter
--- OUTSIDE RECORDS SUMMARY | 2025-03-04 05:00 | XMS_ITS | Encounter Summary ---
Author Organization [facility] Address [address] [place] [address] Care Team Providers Care Sensory Scientist Name Role Phone Jelani Alicea MD Primary Care Provider + [phone] Luis Alfredo Foley MD Primary Care Provider [phone] Laney Epps MD Unavailable [phone] Reason for Visit * Reason Comments E-prescribe Rx Request Encounter Details Date Type Department Care Team Description 03/05/2019 Refill OBGYN - [place] [address] [place], [place] [phone] Nargis Manzano, E-prescribe Rx Request Social History Tobacco Use Types Packs/Day Years Used Date Smoking Tobacco: Never Smokeless Tobacco: Never Alcohol Use Standard Drinks/Week Comments No 0 (1 standard drink = 0.6 oz pur e alcohol) Sex Assigned at Date Recorded Not on file Job Start Date Occupation Industry Not on file Not on file Not on file documented as of this encounter Miscellaneous Notes * Telephone Encounter - Ely Shira - 03/05/2019 4:04 PM EST WHEN WAS THE PATIENTS LAST ANNUAL STATISTICAL ENGINEER EXAM? 07/30/2016 Does patient have an upcoming appointment? Yes 04/01/2019 (THE MEDICATION REQUESTED IS ON THE MED LIST ABOVE) Did you check the Pharmacy information above?: YES Indicate how soon the patient needs the script: BY THE END OF THE DAY Patient would like script to be: E-PRESCRIBED/FAXED TO PHARMACY Is the doctor here today?: NO Can the message wait until the doctor returns?: NO Has the patient been told that the prescription will not be filled until the end of the day? NO Payor: [employer] FFS / Plan: [employer]ANCE / Product Type: MEDICAID RISK documented in this encounter Plan of Treatment Not on file documented as of this encounter Visit Diagnoses Diagnosis Encounter for initial prescription of contraceptive pills General counseling for prescription of oral contraceptives documented in this encounter Care Teams Sensory Scientist Relationship Specialty Start Date End Date Jelani Alicea MD [address] [place] [address] PCP - General Internal Medicine 08/09/17 06/28/21 Luis Alfredo Foley MD [address] [place] [address] PCP - General Internal Medicine 06/29/21 Laney Epps MD [address] [place] [address] Specialist Neurosurgery 10/26/22 documented as of this encounter
--- OUTSIDE RECORDS SUMMARY | 2025-03-04 05:00 | XMS_ITS | Encounter Summary ---
Author Organization [facility] Address [address] [place] [address] Care Team Providers Care Salesperson [employer] Name Role Phone Geno Levine DO Primary Care Pro vider Unavailable Jelani Alicea MD Primary Care Provider + [phone] Luis Alfredo Foley MD Primary Care Provider [phone] Laney Epps MD Unavailable [phone] Encounter Details Date Type Department Care Team Description 08/13/2016 Release of Information Medical Records [address] [place] [id number] Abstract, Provider Social History Tobacco Use Types Packs/Day Years Used Date Smoking Tobacco: Never Alcohol Use Standard Drinks/Week Comments No 0 (1 standard drink = 0.6 oz pur e alcohol) Sex Assigned at Date Recorded Not on file Job Start Date Occupation Industry Not on file Not on file Not on file documented as of this encounter Plan of Treatment Not on file documented as of this encounter Visit Diagnoses Not on filedocumented in this encounter Care Teams Salesperson [employer] Relationship Specialty Start Date End Date Geno Levine DO PCP - General Internal Medicine 03/07/16 08/08/17 Jelani Alicea MD [address] [place] [phone] PCP - General Internal Medicine 08/09/17 06/28/21 Luis Alfredo Foley MD [address] [place] [address] PCP - General Internal Medicine 06/29/21 Laney Epps MD [address] [place] [address] Specialist Neurosurgery 10/26/22 documented as of this encounter
--- OUTSIDE RECORDS SUMMARY | 2025-03-04 05:00 | XMS_ITS | Encounter Summary ---
Author Organization [facility] Address [address] [place] [address] Care Team Providers Care Leak Patcher Name Role Phone Luis Alfredo Foley MD Primary Care Provider [phone] Laney Epps MD Unavailable [phone] Encounter Details Date Type Department Care Team Description 10/02/2022 [facility] Medical [facility] Neurosurgery [place] [address] [phone] Laney Epps MD [address] [place] [address] Social History Tobacco Use Types Packs/Day Years [...] on filedocumented in this encounter Care Teams Leak Patcher Relationship Specialty Start Date End Date Luis Alfredo Foley MD [address] [place] [address] PCP - General Internal Medicine 06/29/21 Laney Epps MD [address] [address] Specialist Neurosurgery 10/26/22 documented as of this encounter
--- OUTSIDE RECORDS SUMMARY | 2025-03-04 05:00 | XMS_ITS | Encounter Summary ---
Author Organization [facility] Address [address] [place] [address] Care Team Providers Care Software Controls Engineer Name Role Phone Community, Pcp Primary Care Provider Unavailalida e Geno Levine DO Primary Care Pro vider Unavailable Jelani Alicea MD Primary Care Provider + [phone] Luis Alfredo Foley MD Primary Care Provider [phone] Laney Epps MD Unavailable [phone] Reason for Visit * Reason Onset Date Comments Prior Authorization 02/13/2016 Encounter Details Date Type Department Care Team Description 02/13/2016 Telephone OBGYN - [place] [address] [place], [place] [phone] Mckay Flores MD [address] [place], [place] [phone] Prior Authorization Social History Tobacco Use Types Packs/Day Years Used Date Smoking Tobacco: Never Alcohol Use Standard Drinks/Week Comments No 0 (1 standard drink = 0.6 oz pur e alcohol) Sex Assigned at Date Recorded Not on file Job Start Date Occupation Industry Not on file Not on file Not on file documented as of this encounter Miscellaneous Notes * Telephone Encounter - Rosalia Jin M.A. - 02/20/2016 9:45 AM EST Left message for patient. CMB Patient's insurance is Buy and Bill only for the nexplanon. Patient can make appt for BC consult tospeak about other options. * Telephone Encounter - Nubia Lockwood M.A. - 02/13/2016 4:44 PM EDT PRior auth for Nexplonan faxed, from placed in [place] documented in this encounter Plan of Treatment Not on file documented as of this encounter Visit Diagnoses Not on filedocumented in this encounter Care Teams Software Controls Engineer Relationship Specialty Start Date End Date Community, Pcp PCP - General Internal Medicine 02/13/16 03/06/16 Geno Levine DO PCP - General Internal Medicine 03/07/16 08/08/17 Jelani Alicea MD [address] [place] [address] PCP - General Internal Medicine 08/09/17 06/28/21 Luis Alfredo Foley MD [address] [place] [address] PCP - General Internal Medicine 06/29/21 Laney Epps MD [address] [place] [address] [place] [address] Specialist Neurosurgery 10/26/22 documented as of this encounter
--- OUTSIDE RECORDS SUMMARY | 2025-03-04 05:00 | XMS_ITS | Encounter Summary ---
Author Organization [facility] Address [address] [place] [address] Care Team Providers Care Sheep Rancher Name Role Phone Jelani Alicea MD Primary Care Provider + [phone] Luis Alfredo Foley MD Primary Care Provider [phone] Laney Epps MD Unavailable [phone] Encounter Details Date Type Department Care Team Description 06/11/2019 Transfer Records Medical Records [address] [place] [address] Abstract, Provider Social History Tobacco Use Types [...] on filedocumented in this encounter Care Teams Sheep Rancher Relationship Specialty Start Date End Date Jelani Alicea MD [address] [place] [address] PCP - General Internal Medicine 08/09/17 06/28/21 Luis Alfredo Foley MD [address] [place] [address] PCP - General Internal Medicine 06/29/21 Laney Epps MD [address] [place] [address] Specialist Neurosurgery 10/26/22 documented as of this encounter
--- OUTSIDE RECORDS SUMMARY | 2025-03-04 05:00 | XMS_ITS | Encounter Summary ---
Author Organization [facility] Address [address] [place] [address] Care Team Providers Care Shift Stacker Name Role Phone Jelani Alicea MD Primary Care Provider + [phone] Luis Alfredo Foley MD Primary Care Provider [phone] Laney Epps MD Unavailable [phone] Reason for Visit * Reason Comments E-prescribe Rx Request Encounter Details Date Type Department Care Team Description 10/08/2018 Refill OBGYN - [place] [address] [place], [place] [phone] Mckay Flores MD [address] [place], [place] [phone] E-prescribe Rx Request Social History Tobacco Use [...] encounter Miscellaneous Notes * Telephone Encounter - Dayana Tam - 10/08/2018 11:01 AM EDT Please review patient schedule for AG on 12/02/2018 with DLG * Telephone Encounter - Stephanie Dodson - 10/08/2018 9:54 AM EDT WHEN WAS THE PATIENTS LAST ANNUAL PROSTHETIC DENTIST EXAM? 07/30/16 Does patient have an upcoming appointment? Yes 12/02/18 (THE MEDICATION REQUESTED IS ON THE MED LIST ABOVE) Did you check the Pharmacy information above?: YES Indicate how soon the patient needs the script: BY THE END OF THE DAY Patient would like script to be: E-PRESCRIBED/FAXED TO PHARMACY Is the doctor here today?: YES Can the message wait until the doctor returns?: NO Has the patient been told that the prescription will not be filled until the end of the day? NO No billing information found for this encounter. documented in this encounter Plan of Treatment Not on file documented as of this encounter Visit Diagnoses Diagnosis Encounter for initial prescription of contraceptive pills General counseling for prescription of oral contraceptives documented in this encounter Care Teams Shift Stacker Relationship Specialty Start Date End Date Jelani Alicea MD [address] [place] [address] PCP - General Internal Medicine 08/09/17 06/28/21 Luis Alfredo Foley MD [address] [place] [address] PCP - General Internal Medicine 06/29/21 Laney Epps MD [address] [address] Specialist Neurosurgery 10/26/22 documented as of this encounter
--- OUTSIDE RECORDS SUMMARY | 2025-03-04 05:00 | XMS_ITS | Encounter Summary ---
Author Organization [facility] Address [address] [place] [address] Care Team Providers Care Data Entry Coordinator Name Role Phone Jelani Alicea MD Primary Care Provider + [phone] Luis Alfredo Foley MD Primary Care Provider [phone] Laney Epps MD Unavailable [phone] Encounter Details Date Type Department Care Team Description 12/29/2018 Business Doc Medical Records [address] [place] [address] Abstract, Provider Social History Tobacco Use Types [...] on filedocumented in this encounter Care Teams Data Entry Coordinator Relationship Specialty Start Date End Date Jelani Alicea MD [address] [place] [address] PCP - General Internal Medicine 08/09/17 06/28/21 Luis Alfredo Foley MD [address] [place] [address] PCP - General Internal Medicine 06/29/21 Laney Epps MD [address] [place] [address] Specialist Neurosurgery 10/26/22 documented as of this encounter
== END 2025-03-03 16:58 | disposition home or self-care (01) ==
LOC: HO.LNP 16:57
PROVIDERS: Visit Provider Advanced Practice Midwife
DX: Z13.89 Encounter for screening for other disorder (principal)

== ENCOUNTER 2025-03-26 11:09 | Outpatient (AMB) | payer OTHER, SELFPAY ==
--- NOTE | 2025-03-26 11:18 | MHC.OFFVIS ---
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 Records were requested and they are now in the chart and I have quickly reviewed 95 pages but do not see recent evaluations. 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 Testing for STIs was done at the last visit. Patient is not scheduled for IUD removal but she expressed hope for the same again today. However she also told me that her is in [place] getting treatment for an infection because he had been working out and he is going to be getting a vasectomy in about 2 days while he is there because that is where his insurance is based because of work. So she was hoping to have the IUD removed. She is very clear she does not want to have more children I did caution her that she he also we will need to go for follow-up to make sure that the sperm count is 0 or sufficiently low after the surgery before she considers removal of the IUD because risk of continues for some time afterwards. She very much isn't favor of waiting until that is complete, [facility] Medical History HTN (hypertension) Social History Household Members: Spouse and Children Housing: Apartment Alcohol intake: never Patient : No Current occupational status: employed Female Reproductive History Menstrual Age of Menarche: 14 control method: copper IUCD Total pregnancies: 2 Full term: 2 History of abnormal pap smear: No Physical Exam Vital Signs: Last Vital Signs BP 140/98 H 03/26/25 11:33 BMI result Body Mass Index 28.0 Const General: healthy appearing, comfortable, no acute distress, well developed and alert Nutritional Appearance: average body habitus Orientation/consciousness: patient oriented x3 Limitations: no limitations HEENT Head: Yes normocephalic Neck Neck: Yes normal visual inspection Chest Chest palpation & inspection: normal inspection of the chest Breast/axilla inspection: normal inspection of the breasts and normal inspection of the axillae Breast/axilla palpation: normal palpation of the breasts and normal palpation of the axillae Resp Effort & Inspection: normal respiratory effort GI Inspection: Yes normal to inspection, No Abdominal wall edema and No distended Palpation (GI): Soft to palpation and nontender Other: External exam within normal limits vagina pink and moist with normal-appearing whitish discharge . Cervix is multiparous pink smooth mobile nontender with Mirena strings easily visible. Uterus small midposition mobile nontender adnexa nontender nonenlarged. Patient does have good tone with Kegel.. General: Yes bladder normal to palpation External Female Exam: normal external appearance and normal appearance of the urethra Speculum Exam - Vagina: normal appearance of the vagina, normal palpation and normal vaginal discharge Speculum Exam - Cervix: normal appearance of the cervix, normal palpation and nontender Bimanual exam- vagina & uterus: normal bimanual exam, normal palpation, uterine size normal, bladder normal to palpation, consistency normal, normal palpation, uterine mobility normal, uterine shape normal, No Cervical tenderness present, non-tender and no cervical motion tenderness Bimanual Exam- Adnexa, other: normal adnexae, no masses, normal and No adnexal tenderness Neuro General: patient oriented x3 Assessment & Plan Assessment & Plan (1) IUD (intrauterine device) in place: Comment: Patient thought she had a ParaGard IUD strings indicated is a Mirena IUD as does 3 years of amenorrhea. Patient considering change. Code(s): Z97.5 - Presence of (intrauterine) contraceptive device Category: Medical (2) HTN (hypertension): Comment: With history of severe preeclampsia in , states her doctor discontinued her meds... Code(s): I10 - Essential (primary) hypertension Category: Medical (3) Screening for malignant neoplasm of cervix: Code(s): Z12.4 - Encounter for screening for malignant neoplasm of cervix Category: Medical (4) control counseling: Comment: Patient currently has Mirena wanted it removed is going to be having a vasectomy in a couple of days. I recommend delaying removal until he confirms that is sperm count is 0. Code(s): Z30.09 - Encounter for other general counseling and advice on contraception Category: Medical (5) Well woman exam with routine gynecological exam: Code(s): Z01.419 - Encounter for gynecological examination (general) (routine) without abnormal findings Category: Medical Plan -----Discussed in this visit the following: healthy balanced diet, regular and consistent exercise, getting recommended health screens, doing the best she can for her particular health concerns, kegel exercises, pap smear screening and followup recommendations, mammography screening and SBE, normal changes in cycles in her life stage--- . Pap smear was done at this visit today. . I definitely recommend that she speak with her and ensure that he has the sperm count test done and ensures that it dropped to a non fertile level if not 0, before removing the IUD and once she is assured of that she can schedule removal. Otherwise RTC 1 year. Coding Level of Care Code Est Pt Prev Care 18-39y([id number]) Diagnoses IUD (intrauterine device) in place Z97.5 HTN (hypertension) I10 Screening for malignant neoplasm of cervix Z12.4 control counseling Z30. Well woman exam with routine gynecological exam Z01.419
[2025-03-26 11:33] VITALS: BP 140/98; BMI 28.0
== END 2025-03-26 12:34 | disposition home or self-care (01) ==
LOC: HO.HWS 11:09
PROVIDERS: Visit Provider Advanced Practice Midwife
DX: Z01.419 Encounter for gynecological examination (general) (routine) without abnormal findings (principal); Z97.5 Presence of (intrauterine) contraceptive device; Z30.09 Encounter for other general counseling and advice on contraception; Z12.4 Encounter for screening for malignant neoplasm of cervix
CPT/HCPCS: 99395; 99459

== ENCOUNTER 2025-03-26 11:09 | Outpatient (REF) | payer OTHER, SELFPAY ==
--- OUTSIDE RECORDS SUMMARY | 2025-03-26 18:51 | XMS_ITS | Encounter Summary ---
Author Organization [facility] Prior to 02/14/2024 Address [address] [place] [address] Care Team Providers Care Software Testing Specialist Name Role Phone Community, Pcp Primary Care Provider Unavailalida e Geno Levine DO Primary Care Pro vider Unavailable Jelani Alicea MD Primary Care Provider [phone] Luis Alfredo Foley MD Primary Care Provider [phone] Laney Epps MD Unavailable [phone] Reason for Visit * Reason Onset Date Comments Prior Authorization 02/13/2016 Encounter Details Date Type Department Care Team Description 02/13/2016 Telephone OBGYN - [facility] [address] [place], [place] [id number] Mckay Flores MD [address] [place] [id number] Prior Authorization Social History Tobacco Use Types [...] auth for Nexplonan faxed, from placed in [employer] [facility] documented in this encounter Plan of Treatment Not on file documented as of this encounter Visit Diagnoses Not on filedocumented in this encounter Care Teams Software Testing Specialist Relationship Specialty Start Date End Date Community, Pcp PCP - General Internal Medicine 02/13/16 03/06/16 Geno Levine DO PCP - General Internal Medicine 03/07/16 08/08/17 Jelani Alicea MD [address] [place] [id number] PCP - General Internal Medicine 08/09/17 06/28/21 Luis Alfredo Foley MD [address] [place] [id number] PCP - General Internal Medicine 06/29/21 Laney Epps MD [address] [place] [phone] Specialist Neurosurgery 10/26/22 documented as of this encounter
--- OUTSIDE RECORDS SUMMARY | 2025-03-26 18:51 | XMS_ITS | Clinical Summary ---
Author Organization [employer] Address [address] [facility] [address] [place] [address] Care Team Providers Care Cow Trimmer Name Role Phone Unavailable Primary Care Provider [...] Cancer Screening 2019 HPV/Cotest 2019 COVID-19 Vaccine (1 - 2024-2 6 season) 2024 Influenza Vaccine [...]
--- OUTSIDE RECORDS SUMMARY | 2025-03-26 18:51 | XMS_ITS | Encounter Summary ---
Author Organization [facility] Prior to 02/14/2024 Address [address] [place] [address] Care Team Providers Care Track Repair Worker Name Role Phone Geno Levine DO Primary Care Pro vider Unavailable Jelani Alicea MD Primary Care Provider [phone] Luis Alfredo Foley MD Primary Care Provider [phone] Laney Epps MD Unavailable [phone] Encounter Details Date Type Department Care Team Description 08/13/2016 Release of Information Medical Records [address] [place] [id number] Abstract, Provider Social History Tobacco Use Types [...] on filedocumented in this encounter Care Teams Track Repair Worker Relationship Specialty Start Date End Date Geno Levine DO PCP - General Internal Medicine 03/07/16 08/08/17 Jelani Alicea MD [address] [place] [phone] PCP - General Internal Medicine 08/09/17 06/28/21 Luis Alfredo Foley MD [address] [place] [phone] PCP - General Internal Medicine 06/29/21 Laney Epps MD [address] [place] [address] Specialist Neurosurgery 10/26/22 documented as of this encounter
--- OUTSIDE RECORDS SUMMARY | 2025-03-26 18:51 | XMS_ITS | Clinical Summary ---
Author Organization [facility] [address] [place] [address] [place] [phone] Phone Care Team Providers Care Saw Sharpener Name Role Phone Damon Salinas MD Primary Care Provider Allergies No known active allergies Medications metoprolol succinate (TOPROL-XL) 25 mg 24 hr tablet Take 1 tablet (25 mg total) by mouth 1 (one) time each day. Do not crush or chew. 30 each 5 5 07/15/19 26 Active Additional Information Patient not taking.Reason: Not available, Reported on 02/15/2025 Active Problems Problem Noted Date Diagnosed Date Pituitary abnormality 05/05/2020 Overview (03/31/2024): Last Assessment & Plan: This exam was done in conjunction with [facility] language services certified court interpreter René #[id number]. Ms. Yvette Whitlock has a known pituitary microadenoma originally found on MRI in February 2020. This is nonsecreting and she is has had annual surveillance imaging to follow this. She feels well and states that the only recent treatment has been for allergies causing redness in the right eye for which she has been using drops. There is been no change in her vision or eyeglass prescription and no other constitutional findings. On exam, EOMI, VFF, she was all extremities with good strength, gait is steady. Review of the MRI of the brain with and without gadolinium with sella protocol from [facility] on 10/02/2022 shows a stable hypointense lesion measuring 15 x 7 mm in the center of the pituitary gland. There is no extension outside of the sella, the stalk remains midline, there is no compression of the chiasm. Previous images have measured this as 16 x 9 x 7 mm and 13 x 11 x 6 mm however, the morphology is the same. At this point, I believe we can move to this every 2 years and she is agreeable. Assessment & Plan (02/15/2025 5:02 PM EST): I reviewed the MRI findings in detail with Ms. Whitlock and her who serves as home health attendant. The hypointensity in the posterior pituitary is slightly smaller than on the previous MRI 3 years ago and within range of the one before that. She remains asymptomatic and there is no concern for compression of the optic chiasm. I believe we can continue with the surveillance imaging every 2 to 3 years unless she has a dramatic change in exam and develop symptoms. She is agreeable with the plan. Mass of pituitary 04/21/2020 Essential hypertension 02/10/2020 Encounters Date Type Department Care Team Description 02/15/2025 3:45 PM EST Office Visit Neurosurgery [place] [address] [place] [address] Laney Epps MD Pituitary abnormality (CMS/HCC V24) (Primary Dx) 01/18/2025 12:24 PM EDT - 01/18/2025 11:59 PM EDT Hospital Encounter Radiology Department - [address] [phone] Mass of pituitary (CMS/HCC V24) Discharge Disposition: Home or Self Care 01/18/2025 Results Follow-Up Adult Medicine [address] [phone] Dona Choi PA 01/15/2025 1:30 PM EDT Office Visit Adult Medicine [address] [phone] Dona Choi PA Encounter to establish care (Primary Dx); Screening for deficiency anemia; Screening for thyroid disorder; Essential hypertension; Elevated blood pressure reading; Tachycardia; Pure hypercholesterolemia ; Mass of pituitary (CMS/HCC V24) from Last 3 Months Immunizations Immunization Administration Dates Next Due Influenza Quadravalent, MDCK , 0.5ml, preservative free (Flucelvax) 6mo and older 07/07/2019 PPD Test 08/13/2016 Tdap Tetanus diptheria acell ular pertussis (Boostrix; Adacel) 7yo and older 10/19/2019,12/25/2018 Surgical History Surgery Date Site/Laterality Comments OTHER SURGICAL HISTORY PROCEDURE: DENIES PREVIOUS SURGERY Medical History Medical History Date Comments Preeclampsia DX:Preeclampsia; COMMENT: x2 Pituitary abnormality ([facility] V24) 05/05/2020 DX:Pituitary abnormality ([facility]) Family History Medical History Relation Name Comments No Known Problems Daughter Diabetes Father No Known Problems Half-Brother 1 mat No Known Problems Half-Brother 2 pat No Known Problems Half-Sister 1 mat No Known Problems Half-Sister 2 pat Prostate cancer Maternal Grandfather Hypertension Maternal Grandmother Hypertension Mother No Known Problems Paternal Grandfather Alzheimer's disease Paternal Grandmother No Known Problems Son Breast cancer Neg Hx Cervical cancer Neg Hx Ovarian cancer Neg Hx Uterine cancer Neg Hx Relation Name Status Comments Daughter Alive Father Alive Half-Brother 1 mat Alive Half-Brother 2 pat Alive Half-Sister 1 mat Alive Half-Sister 2 pat Alive Maternal Grandfather Alive Maternal Grandmother Alive Mother Alive Paternal Grandfather Paternal Grandmother Alive Son Alive Social History Tobacco Use Types Packs/Day Years Used Date Smoking Tobacco: Never Smokeless Tobacco: Never Tobacco Cessation:Counseling Given: Not Answered Alcohol Use Standard Drinks/Week Comments No 0 (1 standard drink = 0.6 oz pur e alcohol) Housing Instability Answer Date Recorde d Are you worried that in the next 2 months you may not have stable housing? No 01/15/2025 Food Access & Nutrition Answer Date Rec orded Do you have access to a vari ety of food including fruits and vegetables? Yes 01/15/2025 Health Literacy Answer Date Recorded How often do you need to hav e someone help you when you read instructions, pamphlets, or other written material from your doctor or pharmacy? Never 01/15/2025 Caregiver: How often do you need to have someone help you when you read instructions, pamphlets, or other written material from your doctor or pharmacy? Not on file 01/15/2025 Financial Risk Answer Date Recorded How hard is it for you to pa y for the very basics like food, housing, medical care, and air conditioning / heating? Not very hard 01/15/2025 Transportation Answer Date Recorded Has the lack of transportati on kept you from meetings, work, or from getting things needed for daily living? No Has the lack of transportati on kept you from medical appointments or from getting medications? No 01/15/2025 Social Isolation Answer Date Recorded How often do you feel lonely or isolated from th ose around you? Never 01/15/2025 Food Risk Answer Date Recorded Within the past 12 months we worried whether our food would run out before we got money to buy more. Never true 01/15/2025 Within the past 12 months th e food we bought just didn't last and we didn't have money to get more. Never true 01/15/2025 Dependent Care Answer Date Recorded Do you need help finding or paying for care for your loved ones. For example, director child abuse therapy or elderly care for an older adult? No 01/15/2025 Education Answer Date Recorded Do you think completing more education or training, like finishing a GED, going to college, or learning a trade, would be helpful for you? N/A 01/15/2025 Employment and Income Answer Date Recor ded During the last four weeks, have you been actively looking for work? No 01/15/2025 Living Situation Answer Date Recorded What is your living situation? 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 Not on file Not on file Not on file Last Filed Vital Signs Vital Sign Reading Time Taken Comments Blood Pressure 166/98 01/15/2025 1:36 PM EDT no cp no sob provider will recheck Pulse 100 01/15/2025 2:08 PM EDT Temperature 36.9 C (98.5 F) 01/15/2025 1:27 PM EDT Respiratory Rate 16 01/15/2025 1:27 PM EDT Oxygen Saturation 99% 01/15/2025 1:2 7 PM EDT Inhaled Oxygen Concentration - - Weight 83.9 kg (185 lb) 02/15/2025 3:49 PM EST Height 172.7 cm (5' 8 ) 02/15/2025 3:49 PM EST Body Mass Index 28.13 02/15/2025 3:49 PM EST Plan of Treatment Upcoming Encounters Date Type Department Care Team ([facility] st Contact Info) Description 04/13/2025 12:30 PM EST Office Visit [facility] [address] [phone] Wero Montes PA [address] [place] [phone] Health Maintenance Due Date Last Done Comments Hepatitis B Vaccines (1 of 3 - 19+ 3-dose series) 2008 HPV Vaccines (1 - 3-dose SCD M series) 2016 Cervical Cancer Screening: HPV 07/08/2024 07/09/2019 Influenza Vaccine (#1) 2024 07/07/2019 Social Influencers of Health Screening 01/15/2026 01/15/2025 Hypertension/CHF/CAD Annual BMP Blood Test 01/18/2026 01/18/2025, 04/22/2020 DTaP,Tdap,and Td Vaccines (3 - Td or Tdap) 10/18/2029 10/19/2019, 12/25/2018 Cholesterol Screening (Lipid Panel) 01/18/2030 01/18/2025, 12/25/2018 RSV Immunization Adult Patients (1 - 1-dose 75+ series) 2064 Hepatitis C Screening Completed 07/30/2016 HIV Screening Completed 05/13/2019 Depression Screening Completed 01/15/2025 COVID-19 Vaccine Discontinued HIB Vaccines Aged Out No longer eligi ble based on patient's age to complete this topic Hepatitis A Vaccines Aged Out No long er eligible based on patient's age to complete this topic IPV Vaccines Aged Out No longer eligi ble based on patient's age to complete this topic MMR Vaccines Aged Out No longer eligi ble based on patient's age to complete this topic Meningococcal ACWY Vaccine Aged Out N o longer eligible based on patient's age to complete this topic Meningococcal B Vaccine Aged Out No l onger eligible based on patient's age to complete this topic Pneumococcal Vaccine: Pediatrics (0 to 5 Years) and At-Risk Patients (6 to 49 Years) Aged Out No longer eligible based on patient's age to complete this topic RSV Immunization Patients Under 20 months Aged Out No longer eligible based on patient's age to complete this topic Varicella Vaccines Aged Out No longer eligible based on patient's age to complete this topic Procedures Procedure Name Priority Date/Time Associated Diagnosis Comments MR BRAIN WO AND W CONTRAST Routine 01/18/2025 1:43 PM EDT Mass of pituitary ([facility] V24) CBC WITH AUTO DIFFERENTIAL Routine 01/18/2025 8:59 AM EDT Screening for deficiency anemia CBC AND DIFFERENTIAL Routine 01/18/2025 8:59 AM EDT Screening for deficiency anemia COMPREHENSIVE METABOLIC PANEL Routine 01/18/2025 8:59 AM EDT Essential hypertension LIPID PANEL WITH REFLEX TO DIRECT LDL Routine 01/18/2025 8:59 AM EDT Pure hypercholesterolemia THYROID STIMULATING HORMONE WITH REFLEX TO FREE T4 AND FREE T3 Routine 01/18/2025 8:59 AM EDT Screening for thyroid disorder ECG 12-LEAD TRACING ONLY Routine 01/15/2025 4:25 PM EDT Tachycardia HPV Routine 07/09/2019 HIV SCREENING Routine 05/13/2019 HEPATITIS C SCREENING Routine 07/30/2016 from Last 3 Months or Most Recently Relevant to Health Maintenance Results * MR Brain wo and w Contrast (01/18/2025 1:43 PM EDT) Anatomical Region Laterality Modality Head and Neck Magnetic Resonan ce 01/19/2025 4:36 PM EDT Impressions 01/20/2025 1:11 PM EDT Mild decrease in size of the pituitary lesion. No significant change in nonspecific white matter signal abnormalities. -------- FINAL REPORT -------- Dictated By: Geri Taylor Dictated Date: 01/19/2025 16:36 ET Assigned Physician: Geri Taylor Reviewed and Electronically Signed By: Geri Taylor Signed Date: 01/20/2025 13:11 ET Workstation ID: [id number] Transcribed By: Self Edit Transcribed Date: 01/19/2025 17:16 ET Narrative 01/20/2025 1:11 PM EDT EXAM: BRAIN MRI HISTORY: Follow-up pituitary mass. COMPARISON: 10/02/2021, 09/14/2019, and 03/14/2020 TECHNIQUE: Exam performed on a 1.5 Leah high-field MRI scanner. Multiplanar imaging performed without and with contrast. 17 cc of Dotarem administered intravenously. FINDINGS: Exam limited by varying degrees of motion artifact. Exam also limited by artifact from dental hardware. Pituitary gland has mildly decreased in size in the interval. The nonenhancing lobular lesion within the posterior pituitary gland measures 1.3 x 1.0 x 0.5 cm (TR x CC x AP) compared with 1.6 x 1.0 x 0.7 cm on the most recent exam. No mass effect on the optic chiasm. Infundibulum has midline position. Diffusion weighted and ADC images are distorted due to artifact from dental metal. No evidence of intracranial hemorrhage. No significant change in multiple nonenhancing T2/FLAIR hyperintense foci in the subcortical and deep white matter and minimally in the periventricular white matter. No evidence of a new enhancing mass, mass effect, or midline shift. No hydrocephalus. Basal cisterns are patent. Low-lying cerebellar tonsils. Normal vascular flow-voids appear present in the major intracranial arteries at the skull base. No significant sinus disease in the partially imaged paranasal sinuses. No significant fluid signal within mastoid air cells. Procedure Note Geri Taylor MD - 01/20/2025 EXAM: BRAIN MRI HISTORY: Follow-up pituitary mass. COMPARISON: 10/02/2021, 09/14/2019, and 03/14/2020 TECHNIQUE: Exam performed on a 1.5 Leah high-field MRI scanner.Multiplanar imaging performed without and with contrast. 17 cc of Dotaremadministered intravenously. FINDINGS: Exam limited by varying degrees of motion artifact. Exam also limited byartifact from dental hardware. Pituitary gland has mildly decreased in size in the interval. Thenonenhancing lobular lesion within the posterior pituitary gland measures1.3 x 1.0 x 0.5 cm (TR x CC x AP) compared with 1.6 x 1.0 x 0.7 cm on themost recent exam. No mass effect on the optic chiasm. Infundibulum hasmidline position. Diffusion weighted and ADC images are distorted due to artifact fromdental metal. No evidence of intracranial hemorrhage. No significantchange in multiple nonenhancing T2/FLAIR hyperintense foci in thesubcortical and deep white matter and minimally in the periventricularwhite matter. No evidence of a new enhancing mass, mass effect, or midline shift. Nohydrocephalus. Basal cisterns are patent. Low-lying cerebellar tonsils.Normal vascular flow- voids appear present in the major intracranialarteries at the skull base. No significant sinus disease in the partially imaged paranasal sinuses. Nosignificant fluid signal within mastoid air cells. IMPRESSION: Mild decrease in size of the pituitary lesion. No significant change innonspecific white matter signal abnormalities. -------- FINAL REPORT -------- Dictated By: Geri Taylor Dictated Date: 01/19/2025 16:36 ET Assigned Physician: Geri Taylor Reviewed and Electronically Signed By: Geri Taylor Signed Date: 01/20/2025 13:11 ET Workstation ID: [id number] Transcribed By: Self Edit Transcribed Date: 01/19/2025 17:16 ET us Lauryn JOHNS IMG MRI PROCEDURES Final R esult * Thyroid stimulating hormone with reflex to free t4 and free t3 (01/18/2025 8:59 AM EDT) TSH 1.54 0.40 - 4.00 mcIU/mL LAB CHEMISTRY METHOD 01/18/2025 3:05 PM EDT [facility] ([facility] Blood Venous blood specimen / Unknown Venipuncture / Unknown 01/18/2025 8:59 AM EDT 01/18/2025 8:59 AM EDT us Dona JOHNS LAB BLOOD ORDERABLES Final Resul t Performing Organization Address City/[facility]/ZIP Co de Phone Number [facility] [address] [place] [address], [place] [phone] * (ABNORMAL) Lipid panel with reflex to direct LDL (01/18/2025 8:59 AM EDT) Cholesterol 202(H) 0 - 200 mg/dL LAB CHEMISTRY METHOD 01/18/2025 1:59 PM EDT [facility] Triglycerides 49 0 - 150 mg/dL LAB CHEMISTRY METHOD 01/18/2025 1:59 PM EDT [facility] HDL 89 >=40 mg/dL LAB CHEMISTRY METHOD 01/18/2025 1:59 PM EDT [facility] LDL Calculated 103(H) 0 - 100 mg/dL LAB CHEMISTRY METHOD 01/18/2025 1:59 PM EDT [facility] Comment:Estimated LDL Calcul ated using equation: Total cholesterol - HDL cholesterol - (Triglycerides/5) VLDL Cholesterol Dima 9.8 mg/dL LAB CHEMISTRY METHOD 01/18/2025 1:59 PM EDT [facility] Non HDL Chol. (LDL+VLDL) 113 <145 mg/dL LAB CHEMISTRY METHOD 01/18/2025 1:59 PM EDT [facility] Chol/HDL Ratio 2.3 0.0 - 4.4 LAB CHEMISTRY METHOD 01/18/2025 1:59 PM EDT [facility] Blood Venous blood specimen / Unknown Venipuncture / Unknown 01/18/2025 8:59 AM EDT 01/18/2025 8:59 AM EDT us Dona JOHNS LAB BLOOD ORDERABLES Final Resul t [facility] [address] [place] [address], * CBC auto differential (01/18/2025 8:59 AM EDT) [facility] WBC 7.1 4.8 - 10.8 K/mcL LAB HEMETOLOGY METHOD 01/18/2025 10:12 AM EDT [facility] RBC 3.90 3.80 - 4.80 M/mcL LAB HEMETOLOGY METHOD 01/18/2025 10:12 AM EDT [facility] Hemoglobin 11.7 11.5 - 16.0 g/dL LAB HEMETOLOGY METHOD 01/18/2025 10:12 AM EDT [facility] Hematocrit 36.0 35.0 - 47.0 % LAB HEMETOLOGY METHOD 01/18/2025 10:12 AM [facility] MCV 92.5 79.0 - 98.0 FL LAB HEMETOLOGY METHOD 01/18/2025 10:12 AM EDT [facility] MCH 30.1 27.0 - 32.0 pcg LAB HEMETOLOGY METHOD 01/18/2025 10:12 AM [facility] MCHC 32.5 32.0 - 37.0 g/dL LAB HEMETOLOGY METHOD 01/18/2025 10:12 AM EDT [facility] RDW 13.1 11.0 - 15.0 % LAB HEMETOLOGY METHOD 01/18/2025 10:12 AM EDT [facility] Platelets 300 130 - 400 K/mcL LAB HEMETOLOGY METHOD 01/18/2025 10:12 AM EDT [facility] MPV 9.5 7.0 - 11.0 FL LAB HEMETOLOGY METHOD 01/18/2025 10:12 AM EDT [facility] NRBC 0.0 <1.0 % LAB HEMETOLOGY METHOD 01/18/2025 10:12 AM [facility] NRBC Absolute 0.00 <0.10 K/mcL LAB HEMETOLOGY METHOD 01/18/2025 10:12 AM [facility] Neutrophils Relative 59.6 % LAB HEMETOLOGY METHOD 01/18/2025 10:12 AM [facility] Lymphocytes Relative 31.5 % LAB HEMETOLOGY METHOD 01/18/2025 10:12 AM [facility] Monocytes Relative 6.1 % LAB HEMETOLOGY METHOD 01/18/2025 10:12 AM [facility] Eosinophils Relative 2.1 % LAB HEMETOLOGY METHOD 01/18/2025 10:12 AM [facility] Basophils Relative 0.4 % LAB HEMETOLOGY METHOD 01/18/2025 10:12 AM [facility] Immature Granulocytes Relative 0.3 % LAB HEMETOLOGY METHOD 01/18/2025 10:12 AM [facility] Neutrophils Absolute 4.23 1.50 - 7.00 K/mcL LAB HEMETOLOGY METHOD 01/18/2025 10:12 AM [facility] Lymphocytes Absolute 2.24 1.00 - 5.00 K/mcL LAB HEMETOLOGY METHOD 01/18/2025 10:12 AM [facility] Monocytes Absolute 0.43 0.20 - 1.00 K/mcL LAB HEMETOLOGY METHOD 01/18/2025 10:12 AM [facility] Eosinophils Absolute 0.15 0.00 - 0.50 K/mcL LAB HEMETOLOGY METHOD 01/18/2025 10:12 AM [facility] Basophils Absolute 0.03 0.00 - 0.20 K/mcL LAB HEMETOLOGY METHOD 01/18/2025 10:12 AM [facility] Immature Granulocytes Absolute 0.02 0.00 - 0.03 K/mcL LAB HEMETOLOGY METHOD 01/18/2025 10:12 AM EDT [facility] Blood Venous blood specimen / Unknown Venipuncture / Unknown 01/18/2025 8:59 AM EDT 01/18/2025 8:59 AM EDT us Dona Jimbo PA LAB BLOOD ORDERABLES Final Resul t [facility] [address] [place] [address], [place] [phone] * Comprehensive metabolic panel (01/18/2025 8:59 AM EDT) Sodium 138 133 - 145 mmol/L LAB CHEMISTRY METHOD 01/18/2025 1:54 PM [facility] Potassium 4.0 3.5 - 5.5 mmol/L LAB CHEMISTRY METHOD 01/18/2025 1:54 PM [facility] Chloride 103 96 - 110 mmol/L LAB CHEMISTRY METHOD 01/18/2025 1:54 PM [facility] CO2 26 21 - 32 mmol/L LAB CHEMISTRY METHOD 01/18/2025 1:54 PM [facility] Anion Gap 9 3 - 11 LAB CHEMISTRY METHOD 01/18/2025 1:54 PM [facility] Glucose 97 70 - 100 mg/dL LAB CHEMISTRY METHOD 01/18/2025 1:54 PM [facility] BUN 7 5 - 25 mg/dL LAB CHEMISTRY METHOD 01/18/2025 1:54 PM [facility] Creatinine 0.55 0.50 - 1.10 mg/dL LAB CHEMISTRY METHOD 01/18/2025 1:54 PM [facility] eGFR 123 >=60 mL/min/1. 73m2 LAB CHEMISTRY METHOD 01/18/2025 1:54 PM [facility] Comment:Calculation based on the Chronic Kidney Disease Epidemiology Collaboration (CKD-EPI) equation refit without adjustment for race. BUN/Creatinine Ratio 12.7 LAB CHEMISTRY METHOD 01/18/2025 1:54 PM EDT [facility] Calcium 9.0 8.5 - 10.5 mg/dL LAB CHEMISTRY METHOD 01/18/2025 1:54 PM EDT [facility] AST (SGOT) 17 10 - 42 unit/L LAB CHEMISTRY METHOD 01/18/2025 1:54 PM EDT [facility] ALT (SGPT) 19 10 - 60 unit/L LAB CHEMISTRY METHOD 01/18/2025 1:54 PM EDT [facility] Alkaline Phosphatase 72 42 - 121 unit/L LAB CHEMISTRY METHOD 01/18/2025 1:54 PM EDT [facility] Total Protein 7.3 6.0 - 8.0 g/dL LAB CHEMISTRY METHOD 01/18/2025 1:54 PM EDT [facility] Albumin 4.0 3.2 - 5.0 g/dL LAB CHEMISTRY METHOD 01/18/2025 1:54 PM EDT [facility] Total Bilirubin 0.7 0.0 - 1.4 mg/dL LAB CHEMISTRY METHOD 01/18/2025 1:54 PM EDT [facility] Blood Venous blood specimen / Unknown Venipuncture / Unknown 01/18/2025 8:59 AM EDT 01/18/2025 8:59 AM EDT us Dona Jimbo JOHNS LAB BLOOD ORDERABLES Final Resul t [facility] [address] [place] [address], * ECG 12 lead Tracing Only (01/15/2025 4:25 PM EDT) Impressions Radha Huerta MA - 01/15/2025 4:25 PM EDT EKG done today reveals sinus tachycardia heart rate of 100 bpm, no acute ST elevations. Reviewed with Dr. Nuñez. us Dona Jimbo PA ECG ORDERABLES Final Result * Cervical Cancer Screening: HPV (07/09/2019) Cervical Cancer Screening: HPV Abstracted ,negative Historical Provider MD HEALTH MAINTENANCE Final Result * HIV Screening (05/13/2019) HIV Screening abstracted 0 Historical Provider MD HEALTH MAINTENANCE Final Result * Hepatitis C Screening (07/30/2016) Hepatitis C Screening abstracted Historical Provider HEALTH MAINTENANCE Final Result from Last 3 Months or Most Recently Relevant to Health Maintenance Insurance [employer] Care Teams Saw Sharpener Relationship Specialty Start Date End Date Damon Salinas MD [address] [place] [phone] PCP - General Internal Medicine 10/15/24
--- OUTSIDE RECORDS SUMMARY | 2025-03-26 18:51 | XMS_ITS | Encounter Summary ---
Author Organization [facility] Prior to 02/14/2024 Address [address] [place] [address] Care Team Providers Care Die Assembler Name Role Phone Community, Pcp Primary Care Provider Unavailabl e Geno Levine DO Primary Care Pro vider Unavailable Jelani Alicea MD Primary Care Provider [phone] Luis Alfredo Foley MD Primary Care Provider [phone] Laney Epps MD Unavailable [phone] Encounter Details Date Type Department Care Team Description 02/15/2016 Release of Information Medical Records [address] [place] [address] Abstract, Provider Social History Tobacco Use Types [...] on filedocumented in this encounter Care Teams Die Assembler Relationship Specialty Start Date End Date Community, Pcp PCP - General Internal Medicine 02/13/16 03/06/16 Geno Levine DO PCP - General Internal Medicine 03/07/16 08/08/17 Jelani Alicea MD [address] [place] [address] PCP - General Internal Medicine 08/09/17 06/28/21 Luis Alfredo Foley MD [address] [place] [address] PCP - General Internal Medicine 06/29/21 Laney Epps MD [address] [place] [address] Specialist Neurosurgery 10/26/22 documented as of this encounter
--- OUTSIDE RECORDS SUMMARY | 2025-03-26 18:51 | XMS_ITS | Encounter Summary ---
Author Organization [facility] Address [address] [place] [address] Care Team Providers Care Benefits Manager Name Role Phone Damon Salinas MD Primary Care Provider Encounter Details Date Type Department Care Team ([facility] st Contact Info) Description 01/18/2025 Results Follow-Up Adult Medicine [facility] [address] [place], [place] [phone] Dona Choi PA [address] [place], [place] Social History Tobacco Use Types Packs/Day Years [...] care for your loved ones. For example, child protective services social worker or elderly care for an older adult? [...] as of this encounter Plan of Treatment Upcoming Encounters Date Type Department Care Team ([facility] st Contact Info) Description 04/13/2025 12:30 PM EST Office Visit Adult Medicine [address] [phone] Wero Montes PA [address] [place] [phone] documented as of this encounter Visit Diagnoses Not on filedocumented in this encounter Additional Health Concerns Assessment Noted Time PHQ-9 Depression Total Score: 0 01/16/20 1:26 PM EDT documented as of this encounter Care Teams Benefits Manager Relationship Specialty Start Date End Date Damon Salinas MD [address] [place] [address] PCP - General Internal Medicine 10/15/24 documented as of this encounter
--- OUTSIDE RECORDS SUMMARY | 2025-03-26 18:51 | XMS_ITS | Encounter Summary ---
Author Organization [facility] Prior to 02/14/[address] [place] [address] Care Team Providers Care Stagecraft Teacher Name Role Phone Luis Alfredo Foley MD Primary Care Provider [phone] Laney Epps MD Unavailable [phone] Encounter Details Date Type Department Care Team Description 10/02/2022 SCAN [facility] Neurosurgery [place] [address] [phone] Laney Epps MD [address] [place] [address] Social History Tobacco Use Types Packs/Day Years [...] on filedocumented in this encounter Care Teams Stagecraft Teacher Relationship Specialty Start Date End Date Luis Alfredo Foley MD [address] [place] [address] PCP - General Internal Medicine 06/29/21 Laney Epps MD [address] [address] Specialist Neurosurgery 10/26/22 documented as of this encounter
--- OUTSIDE RECORDS SUMMARY | 2025-03-26 18:51 | XMS_ITS | Encounter Summary ---
Author Organization [facility] Prior to 02/14/2024 Address [address] [place] [address] Care Team Providers Care Rewinder Name Role Phone Jelani Alicea MD Primary Care Provider + [phone] Luis Alfredo Foley MD Primary Care Provider [phone] Laney Epps MD Unavailable [phone] Encounter Details Date Type Department Care Team Description 11/28/2019 Hospital Medical Records [address] [place] [address] Jaiden Fleming, [facility] [address] [place] [address] Social History Tobacco Use Types Packs/Day Years [...] on filedocumented in this encounter Care Teams Rewinder Relationship Specialty Start Date End Date Jelani Alicea MD [address] [place] [address] [phone] PCP - General Internal Medicine 08/09/17 06/28/21 Luis Alfredo Foley MD [address] [place] [address] [phone] PCP - General Internal Medicine 06/29/21 Laney Epps MD [address] [place] [address] [address] [place] [address] Specialist Neurosurgery 10/26/22 documented as of this encounter
--- OUTSIDE RECORDS SUMMARY | 2025-03-26 18:51 | XMS_ITS | Encounter Summary ---
Author Organization [facility] Prior to 02/14/2024 Address [address] [place] [address] Care Team Providers Care Public Employment Mediator Name Role Phone Jelani Alicea MD Primary Care Provider + [phone] Luis Alfredo Foley MD Primary Care Provider [phone] Laney Epps MD Unavailable [phone] Encounter Details Date Type Department Care Team Description 02/15/2020 Transfer Records Medical Records [address] [place] [address] Social History Tobacco Use Types Packs/Day Years [...] have Coronavirus / COVID-19? No / Unsure 02/09/2020 2:28 PM EDT documented as of this encounter Plan of Treatment Not on file documented as of this encounter Visit Diagnoses Not on filedocumented in this encounter Care Teams Public Employment Mediator Relationship Specialty Start Date End Date Jelani Alicea MD [address] [place], [place] [phone] PCP - General Internal Medicine 08/09/17 06/28/21 Luis Alfredo Foley MD [address] [place], [place] [phone] PCP - General Internal Medicine 06/29/21 Laney Epps MD [address] [place] [address] [place] [address] Specialist Neurosurgery 10/26/22 documented as of this encounter
--- OUTSIDE RECORDS SUMMARY | 2025-03-26 18:51 | XMS_ITS | Encounter Summary ---
Author Organization [facility] Prior to 02/14/2024 Address [address] [place] [address] Care Team Providers Care Balance Wheel Screw Hole Tapper Name Role Phone Jelani Alicea MD Primary Care Provider + [phone] Luis Alfredo Foley MD Primary Care Provider [phone] Laney Epps MD Unavailable [phone] Encounter Details Date Type Department Care Team Description 01/14/2019 Refill OBGYN - [place] [address] [place] [address] [phone] Nargis Manzano DO Social History Tobacco Use Types Packs/Day Years [...] contraceptives documented in this encounter Care Teams Balance Wheel Screw Hole Tapper Relationship Specialty Start Date End Date Jelani Alicea MD [address] [place] [address] [phone] PCP - General Internal Medicine 08/09/17 06/28/21 Luis Alfredo Foley MD [address] [place] [address] [phone] PCP - General Internal Medicine 06/29/21 Laney Epps MD [address] [place] [address] [address] [place] [address] Specialist Neurosurgery 10/26/22 documented as of this encounter
--- OUTSIDE RECORDS SUMMARY | 2025-03-26 18:51 | XMS_ITS | Encounter Summary ---
Author Organization [facility] Prior to 02/14/2024 Address [address] [place] [address] Care Team Providers Care Sound Editor Name Role Phone Jelani Alicea MD Primary Care Provider + [phone] Luis Alfredo Foley MD Primary Care Provider [phone] Laney Epps MD Unavailable [phone] Reason for Visit * Reason Onset Date Comments refill request 04/07/2020 Encounter Details Date Type Department Care Team Description 04/07/2020 Refill Adult Medicine [facility] [address] [place] [address] Jelani Alicea MD [address] [place] [address] refill request Social History Tobacco Use Types Packs/Day Years [...] have Coronavirus / COVID-19? No / Unsure 03/23/2020 1:41 PM EST documented as of this encounter Miscellaneous Notes * Telephone Encounter - Radha Benjamin M.A. - 04/07/2020 10:16 AM EST Lab Results Component Value Date NA 139 02/02/2020 K 3.8 02/02/2020 CO2 28 02/02/2020 CL 103 02/02/2020 BUN 12 02/02/2020 CREAT 0.66 02/02/2020 GLU 71 02/02/2020 CA 9.6 02/02/2020 GFR > 60 02/02/2020 * Telephone Encounter - Modesta Navarro M.A. - 04/07/2020 10:15 AM EST Lab Results Component Value Date NA 139 02/02/2020 K 3.8 02/02/2020 CO2 28 02/02/2020 CL 103 02/02/2020 BUN 12 02/02/2020 CREAT 0.66 02/02/2020 GLU 71 02/02/2020 CA 9.6 02/02/2020 GFR > 60 02/02/2020 Pending appt 07/13/20 * Telephone Encounter - Rosalba Perez - 04/07/2020 10:05 AM EST Patient would like script to be: E-PRESCRIBED/FAXED TO PHARMACY WHEN WAS THE PATIENT'S LAST APPOINTMENT IN ADULT MEDICINE? 02/10/2020 WHEN WAS THE LAST TIME THE PATIENT SAW THEIR PCP? Patient has not seen PCP, last office visit was 02/01/2020 Does patient have an upcoming appointment? yes (THE MEDICATION REQUESTED IS ON THE MED LIST ABOVE) All of the medications requested were on the CURRENT MEDS list Did you check the Pharmacy information above?: YES Patient wants: 90 -day supply Is this a mail order prescription request ? NO If the refill is from a FAXED refill request what is the RX # listed on the fax? N/A Patients current insurance carrier is: Payor: [employer] FFS / Plan: [employer] / Product Type: MEDICAID RISK documented in this encounter Plan of Treatment Not on file documented as of this encounter Visit Diagnoses Not on filedocumented in this encounter Care Teams Sound Editor Relationship Specialty Start Date End Date Jelani Alicea MD [address] [place] [address] PCP - General Internal Medicine 08/09/17 06/28/21 Luis Alfredo Foley MD [address] [place] [address] [phone] PCP - General Internal Medicine 06/29/21 Laney Epps MD [address] [place] [address] Specialist Neurosurgery 10/26/22 documented as of this encounter
--- OUTSIDE RECORDS SUMMARY | 2025-03-26 18:51 | XMS_ITS | Encounter Summary ---
Author Organization [facility] Prior to 02/14/[address] [place] [address] Care Team Providers Care Naturalist Name Role Phone Jelani Alicea MD Primary Care Provider + [phone] Luis Alfredo Foley MD Primary Care Provider [phone] Laney Epps MD Unavailable [phone] Encounter Details Date Type Department Care Team Description 05/17/2020 Refill Adult Medicine [facility] [address] [place] [address] Jelani Alicea MD [address] [place] [address] [phone] Social History Tobacco Use Types Packs/Day Years [...] 10:00 AM Wero Montes PA-C Adult Med [place] * Telephone Encounter - Betzaida Alas M.A. [...] on filedocumented in this encounter Care Teams Naturalist Relationship Specialty Start Date End Date Jelani Alicea MD [address] [place] [address] PCP - General Internal Medicine 08/09/17 06/28/21 Luis Alfredo Foley MD [address] [place] [address] PCP - General Internal Medicine 06/29/21 Laney Epps MD [address] [place] [address] Specialist Neurosurgery 10/26/22 documented as of this encounter
--- OUTSIDE RECORDS SUMMARY | 2025-03-26 18:51 | XMS_ITS | Clinical Summary ---
Author Organization [facility] Prior to 02/14/2024 Address [address] [place] [address] Care Team Providers Care Electric Motor Repairer Name Role Phone Luis Alfredo Foley MD Primary Care Provider [phone] Laney Epps MD Unavailable [phone] Allergies No known active allergies Medications Medication Sig Dispensed Refills Start Date End Date Status labetalol (NORMODYNE) 100 MG tablet Take 1 Tab by mouth 2 times daily. 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 Ms. Yvette Whitlock has a known pituitary [...] and without gadolinium with sella protocol from [facility] on 10/02/2022 shows a stable hypointense lesion [...] every 2 years and she is agreeable. 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 IRAM updated based on 9 week ultrasound at [place]. Growth @ 63%tile, 4lbs, cephalic. Placenta is anterior with normal insertion Supervision of other normal 05/13/2019 02/10/2020 Overview: 1. [facility] site: [place] 2. Delivery site: [facility] 3. Dating criteria: LMP only 3. Blood type: Lab Results Component Value Date BLDTYPE A POSITIVE 05/13/2019 4. Genetic screening: Date: Result: 5. GBS: Date: 11/02/19- neg 6. FOB name: Harsh Mix 7. Plans A. Epidural or other pain management - B. Labor support identified - C. Tdap - Date:, Flu - Date: 07/07/19 D. Breast or Bottle feed: both breast and bottle E. Baby's name - Autumn Martinez. Circumcision - 8. Hospital Course: Patient arrived in active labor, she progressed through labor, delivery, and period without complications. Today patient reports feeling well. Breast feeding without difficulty. Pain controlled with ibuprofen and tylenol. Denies heavy bleeding. Reports normal bowel and bladder. She has no concerns at this time. Reports having adequate supplies and support at home she has wic/transitional assistance, etc. A stocking inspector was used for today's discharge B/P 129/84; VSS; A+Ox3, heart RRR, LSCTA, uterus firm 1-2 fb below umbilicus, lochia rubra bleeding mild, perineum intact, no hemorrhoids, LE no edema +PP bilaterally PP Day Vaginal Delivery 1 Breast Feeding Mother Portuguese Speaking Discussed warning s/sx including fevers, heavy bleeding (soaking pad front to back in an hour or plum size or greater clots), SOB/Chest pain, PAREDES's that don't go away with tylenol especially with blurry/spotty vision, signs of DVT (warmth, redness, pain to upper/lower extremities). Discussed increasing fluids and increased caloric intake with , light ambulation, not picking up anything heavier than her baby. Educated on normal baby blues versus s/sx of depression. Plan for PP visit in 4-6 weeks or PRN Jaiden Fleming CNM Zika assessment screening: negative Anemia during in third trimester 05/0402/10/2020 Overview: Lab Results Component Value Date HGB 11.2 10/19/2019 HGB 10.4 09/08/2019 HGB 9.7 05/13/2019 Ferrous fumarate 324 mg BID Enc iron rich food History of induced hypertension 201602/10/2020 Overview: ASA 162 mg in for prevention Immunizations Name Administration Dates Next Due Influenza Vaccine-preservati ve Free-quadrivalent 4 Years 07/07/2019 07/06/2020 PPD-RBMG 08/13/2016 Tdap 10/19/2019,12/25/2018 10/18/2029 Family History Medical History Relation Name Comments Diabetes Father Cancer of the Prostate Maternal Grandfather Hypertension Maternal Grandmother CA Breast Negative Hx CA Ovarian Negative Hx Cervical Cancer Negative Hx Uterine Cancer Negative Hx Relation Name Status Comments Brother Alive Father Alive Maternal Grandfather Alive Maternal Grandmother Alive Mother Alive Paternal Grandfather Alive Paternal Grandmother Alive Sister 1 Alive Sister 2 Alive Social History Tobacco Use Types Packs/Day [...] Sign Reading Time Taken Comments Blood Pressure 180/91 05/28/2021 9:17 AM EST Pulse 86 05/28/2021 9:17 AM EST Temperature 36.5 C (97.7 F) 05/28/2021 9:17 AM EST Respiratory Rate 18 05/09/2021 9:32 AM EST Oxygen Saturation 97% 05/28/2021 9:17 AM EST Inhaled Oxygen Concentration - - Weight 72.1 kg (159 lb) 10/26/2022 1:46 PM EDT Height 172.7 cm (5' 8 ) 04/22/2020 10:02 AM EST Body Mass Index 24.18 04/22/2020 10:02 AM EST Plan of Treatment Health Maintenance Due Date Last Done Comments Covid-19 Vaccine (#1) 1989 CERVICAL CANCER SCREENING 07/08/2022 07/09/2019, CHOLESTEROL SCREENING 12/26/2023 12/25/2018 BASELINE HEALTH EXAM 18-39 01/08/202401/07, 01/07/2019, 12/25/2018 BMI CHECK/ADVISE 04/15/2024 02/10/2020, , 12/25/2018, Additional history exists DEPRESSION SCREENING/FOLLOWUP 04/15/2024 SOCIAL NEEDS SCREENING 04/15/2024 INFLUENZA (#1) 2024 07/07/2019 DTAP/TDAP/TD (3 - Td or Tdap) 10/18/2029 10/19/2019, 12/25/2018 PNEUMOCOCCAL VACCINE FOR HIG H RISK PATIENTS (#1) 2054 Care Teams Electric Motor Repairer Relationship Specialty Start Date End Date Luis Alfredo Foley MD [address] [place] [address] PCP - General Internal Medicine 06/29/21 Laney Epps MD [address] [place] [address] Specialist Neurosurgery 10/26/22
--- OUTSIDE RECORDS SUMMARY | 2025-03-26 18:51 | XMS_ITS | Encounter Summary ---
Author Organization [facility] Prior to 02/14/2024 Address [address] [place] [address] Care Team Providers Care Spring Former Name Role Phone Jelani Alicea MD Primary Care Provider + [phone] Luis Alfredo Foley MD Primary Care Provider [phone] Laney Epps MD Unavailable [phone] Reason for Visit * Reason Comments E-prescribe Rx Request Encounter Details Date Type Department Care Team Description 10/08/2018 Refill OBGYN - [place] [address] [place], [place] [phone] Mckay Flores MD [address] [place] [address] [phone] E-prescribe Rx Request Social History Tobacco Use [...] EDT WHEN WAS THE PATIENTS LAST ANNUAL OPERATIONS ARCHITECT EXAM? 07/30/16 Does patient have an upcoming [...] contraceptives documented in this encounter Care Teams Spring Former Relationship Specialty Start Date End Date Jelani Alicea MD [address] [place] [address] PCP - General Internal Medicine 08/09/17 06/28/21 Luis Alfredo Foley MD [address] [place] [address] PCP - General Internal Medicine 06/29/21 Laney Epps MD [address] [place] [address] Specialist Neurosurgery 10/26/22 documented as of this encounter
== END 2025-03-26 11:10 | disposition home or self-care (01) ==
LOC: HO.LNP 11:09
PROVIDERS: Visit Provider Advanced Practice Midwife
DX: Z01.419 Encounter for gynecological examination (general) (routine) without abnormal findings (principal); Z11.51 Encounter for screening for human papillomavirus (HPV); Z30.09 Encounter for other general counseling and advice on contraception; I10 Essential (primary) hypertension; Z97.5 Presence of (intrauterine) contraceptive device
CPT/HCPCS: 87626; 88175